=== PATIENT | female | born 1990 | race Two or more races ===

== ENCOUNTER 2020-06-12 18:17 | Emergency (ER) | payer OTHER, SELFPAY ==
[2020-06-12 19:29] VITALS: BMI 27.4
[2020-06-12 20:00] VITALS: BP 139/78; PULSE 86; RESP 18; TEMP 36.8; O2SAT 97
--- NOTE | 2020-06-12 20:53 | ED.HEATRA ---
HPI - Head Injury General Chief complaint: Headache <Grace Parham NP - Last Filed: 06/13/20 00:33> Stated complaint: head inj 2 weeks ago at work <HENRY Galan Last Filed: 06/13/20 00:33> Time Seen by Provider: 06/12/20 20:35 <Grace Parham NP - Last Filed: 06/13/20 00:33> Source: patient <Grace Parham NP - Last Filed: 06/13/20 00:33> Mode of arrival: ambulatory <HENRY Galan Last Filed: 06/13/20 00:33> Limitations: no limitations <HENRY Galan Last Filed: 06/13/20 00:33> History of Present Illness HPI Narrative: 30-year-old female previously healthy here with complaints of headache with photophobia and nausea. Patient tells me 2 weeks ago while working a box fell and hit her in the head. She has had symptoms since then. There was no loss of consciousness. She denies neck pain, vomiting, dizziness, photophobia. No previous history of concussions. Taking Tylenol home with continued symptoms. Has not been seen for this. <Grace Parham NP - Last Filed: 06/13/20 00:33> MD Complaint: head injury and head pain <HENRY Galan Last Filed: 06/13/20 00:33> Onset (ago): week(s) <HENRY Galan Last Filed: 06/13/20 00:33> Mechanism of Injury: work related injury <HENRY Galan Last Filed: 06/13/20 00:33> Place: work <HENRY Galan Last Filed: 06/13/20 00:33> Loss of Consciousness: no <HENRY Galan Last Filed: 06/13/20 00:33> Location of injury: temporal <HENRY Galan Last Filed: 06/13/20 00:33> Severity: mild <HENRY Galan Last Filed: 06/13/20 00:33> Quality: dull <Grace Parham NP - Last Filed: 06/13/20 00:33> Radiation: none <Grace Parham NP - Last Filed: 06/13/20 00:33> Other Injuries: none <Grace Parham NP - Last Filed: 06/13/20 00:33> Associated symptoms: nausea <Grace Parham NP - Last Filed: 06/13/20 00:33> Related Data Allergies/Adverse reactions: Allergies Allergy/AdvReac Type Severity Reaction Status Date / Time No Known Allergies Allergy Verified 06/12/20 20:52 <Grace Parham NP - Last Filed: 06/13/20 00:33> Review of Systems Review of Systems: Yes all other systems are reviewed and are negative <HENRY Galan Last Filed: 06/13/20 00:33> Constitutional: Constitutional: Reports no additional constitutional complaints, Denies body ache(s), Denies chills, Denies fever(s), Reports headache(s) and Denies weakness <Grace Parham NP - Last Filed: 06/13/20 00:33> Eyes: Eyes: Reports no additional eye complaints, Denies change in vision and Reports photophobia <Grace Parham NP - Last Filed: 06/13/20 00:33> ENT: Reports system reviewed and no additional complaints, except as documented, Denies dizziness, Reports headache(s), Denies nasal congestion, Denies nasal discharge and Denies neck pain <Grace Parham NP - Last Filed: 06/13/20 00:33> Cardiovascular: Cardiovascular: Reports no additional cardiovascular complaints, Denies chest pain, Denies leg edema and Denies dyspnea <Grace Parham NP - Last Filed: 06/13/20 00:33> Respiratory: Respiratory: Reports no additional respiratory complaints, Denies cough and Denies dyspnea <Grace Parham NP - Last Filed: 06/13/20 00:33> Gastrointestinal: Gastrointestinal: Reports no additional gastrointestinal complaints, Denies abdominal pain, Denies diarrhea, Reports nausea and Denies vomiting <Grace Parham NP - Last Filed: 06/13/20 00:33> Genitourinary: Genitourinary: Reports no additional female genitourinary complaints and Denies urinary incontinence <Grace Parham NP - Last Filed: 06/13/20 00:33> Musculoskeletal: Musculoskeletal: Reports no additional musculoskeletal complaints, Denies back pain, Denies arthralgias, Denies joint swelling, Denies neck pain, Denies numbness and Denies tingling <Grace Parham NP - Last Filed: 06/13/20 00:33> Integumentary/Breasts: Skin/Breast: Reports system reviewed and no additional complaints, except as docu and Denies rash <Grace Parham NP - Last Filed: 06/13/20 00:33> Neurologic: Reports system reviewed and no additional complaints, except as documented, Denies Abnormal speech present, Denies dizziness, Reports headache(s), Denies numbness, Denies tingling and Denies weakness <Grace Parham NP - Last Filed: 06/13/20 00:33> FOR[facility]LY [facility] Past Medical History Attestation statement: The following information was validated with the patient. <Grace Parham NP - Last Filed: 06/13/20 00:33> Source: old records reviewed and nursing notes reviewed <Grace Parham NP - Last Filed: 06/13/20 00:33> Medical History: Medical History No known health problems <Grace Parham NP - Last Filed: 06/13/20 00:33> Social History Social History: Social History Alcohol intake: never Smoked in Last 30 Days: No Use of substances other than those prescribed or required for medical reasons: No Advance Directives: No Advance Directives Information Provided: Yes <Grace Parham NP - Last Filed: 06/13/20 00:33> Physical Exam Vital Signs: Vital Signs: Last Vital Signs Temp 98.3 F 06/12/20 20:00 Pulse 86 06/12/20 20:00 Resp 18 06/12/20 20:00 BP 139/78 06/12/20 20:00 Pulse Ox 97 06/12/20 20:00 Body Mass Index 27.4 <Grace Parham NP - Last Filed: 06/13/20 00:33> Vital Signs: Last Vital Signs Temp 98.3 F 06/12/20 20:00 Pulse 86 06/12/20 20:00 Resp 18 06/12/20 20:00 BP 139/78 06/12/20 20:00 Pulse Ox 97 06/12/20 20:00 Body Mass Index 27.4 <Nayan Graham MD - Last Filed: 06/25/20 07:41> Const: General: cooperative, healthy appearing, comfortable and no acute distress <Grace Parham NP - Last Filed: 06/13/20 00:33> Orientation/consciousness: patient oriented x3 <Grace Parham NP - Last Filed: 06/13/20 00:33> Limitations: no limitations <Grace Parham NP - Last Filed: 06/13/20 00:33> HENMT: Head: Yes normal to inspection <Grace Parham NP - Last Filed: 06/13/20 00:33> Ears: hearing grossly normal bilaterally <Grace Parham NP - Last Filed: 06/13/20 00:33> General nose exam: Normal external nose present <Grace Parham NP - Last Filed: 06/13/20 00:33> Face and sinus: Yes normal facial exam <Grace Parham NP - Last Filed: 06/13/20 00:33> Mouth: Normal oral and palatal mucosa present <Grace Parham NP - Last Filed: 06/13/20 00:33> Throat: Yes posterior oropharynx normal <Grace Parham NP - Last Filed: 06/13/20 00:33> Eyes: General: appearance normal, both eyes and all related structures <Grace Parham NP - Last Filed: 06/13/20 00:33> Pupils: Equal, round and reactive pupils present <Grace Parham NP - Last Filed: 06/13/20 00:33> Direct Ophthalmoscopy: photophobia <Grace Parham NP - Last Filed: 06/13/20 00:33> Neck: Neck: Yes normal visual inspection <Grace Parham NP - Last Filed: 06/13/20 00:33> Chest: Chest palpation & inspection: normal inspection of the chest <Grace Parham NP - Last Filed: 06/13/20 00:33> Resp: Effort & Inspection: normal respiratory effort <Grace Parham NP - Last Filed: 06/13/20 00:33> Auscultation: clear to auscultation bilaterally <Grace Parham NP - Last Filed: 06/13/20 00:33> Cardio: Rate: regular rate <Grace Parham NP - Last Filed: 06/13/20 00:33> Rhythm: regular rhythm <Grace Parham NP - Last Filed: 06/13/20 00:33> Peripheral pulses: Peripheral pulses 2+ throughout <Grace Parham NP - Last Filed: 06/13/20 00:33> GI: Inspection: Yes normal to inspection <Grace Parham NP - Last Filed: 06/13/20 00:33> Palpation (GI): Soft to palpation and nontender <Grace Parham NP - Last Filed: 06/13/20 00:33> Auscultation: normal bowel sounds <Grace Parham NP - Last Filed: 06/13/20 00:33> Back/Spine/Pelvis: Thoracic/Lumbar Spine: thoracic and lumbar spine normal to inspection <Grace Parham NP - Last Filed: 06/13/20 00:33> Skin: General skin exam: no rashes or lesions noted <Grace Parham NP - Last Filed: 06/13/20 00:33> Neuro: General: patient oriented x3, no focal motor deficits and normal sensation to monofilament <Grace Parham NP - Last Filed: 06/13/20 00:33> Cranial nerves: Yes CN's II-XII intact bilaterally, Yes Equal, round and reactive pupils present, Yes Bilaterally intact EOM present, Yes Nystagmus not present, Yes Normal facial strength present and Yes Midline tongue present <Grace Parham NP - Last Filed: 06/13/20 00:33> Cognition (Neuro): normal cognition <Grace Parham NP - Last Filed: 06/13/20 00:33> Speech: No Abnormal speech present <Grace Parham NP - Last Filed: 06/13/20 00:33> Gait exam (Neuro): Normal gait present <Grace Parham NP - Last Filed: 06/13/20 00:33> Motor exam (neuro): 5/5 motor strength present throughout <Grace Parham NP - Last Filed: 06/13/20 00:33> Sensory Exam: Normal double simultaneous stimulation for sensation <Grace Parham NP - Last Filed: 06/13/20 00:33> Coordination: [id number] test normal, reuz-hk-[id number] test normal and tandem gait normal <Grace Parham NP - Last Filed: 06/13/20 00:33> Extrem: General: Yes normal to inspection <Grace Parham NP - Last Filed: 06/13/20 00:33> Course Course Course Narrative: 30-year-old female here with headache, nausea and photophobia status post head injury 2 weeks ago. Normal neurological exam. Will check urine , CT head. 2300-CT head negative. Patient is feeling improved after receiving IM Toradol. Likely post concussive. Reviewed worrisome signs and symptoms of when to return to the emergency department. Reviewed head injury care and follow-up with our connections was a work related injury. Comfortable with discharge home. <Grace Parham NP - Last Filed: 06/13/20 00:33> I have reviewed the chart <Nayan Graham MD - Last Filed: 06/25/20 07:41> MDM - Head Injury MDM Narrative Medical decision making narrative: Less likely SDH with negative CT and symptoms >2 weeks <Grace Parham NP - Last Filed: 06/13/20 00:33> Differential Diagnosis Differential diagnosis: Likely concussion without loss of consciousness, closed head injury and subdural hematoma <Grace Parham NP - Last Filed: 06/13/20 00:33> Medical Records Attestation: I reviewed the patient's medical records. <Grace Parham NP - Last Filed: 06/13/20 00:33> Lab Data Attestation: I reviewed the patient's lab results. <Grace Parham NP - Last Filed: 06/13/20 00:33> Labs: Lab Results 06/12/20 Range/Units 21:05 Urine Test NEGATIVE (NEGATIVE) <Grace Parham NP - Last Filed: 06/13/20 00:33> Lab Results 06/12/20 Range/Units 21:05 Urine Test NEGATIVE (NEGATIVE) <Nayan Graham MD - Last Filed: 06/25/20 07:41> Imaging Data CT scan - head: Attestation: I personally reviewed and interpreted this imaging study as follows: <Grace Parham NP - Last Filed: 06/13/20 00:33> Radiologist's impression: EXAMINATION: CT HEAD WITHOUT CONTRAST CLINICAL INFORMATION: Head injury. Pain. COMPARISON: None. TECHNIQUE: Contiguous axial imaging was performed from the skull base to vertex without intravenous contrast. This CT examination was performed using dose optimization techniques as appropriate, variously including the following: * Automated exposure control * Adjustment of mA and/or kV according to patient size (this includes techniques or standardized protocols for targeted exams where dose is matched to indication/reason for exam; i.e. extremities or head) Use of iterative reconstruction technique DLP: 674 mGy-cm. FINDINGS: There is no evidence of acute intracranial hemorrhage or territorial infarction. No abnormal mass effect or midline shift is seen. Turner to white matter differentiation is well preserved. No extra-axial fluid collections are identified. No hydrocephalus. No significant volume loss. There is no abnormal attenuation within the brain parenchyma. The osseous structures and soft tissues are normal. The mastoid air cells and visualized portions of the paranasal sinuses are well aerated. CT/CT head/brain wo con IMPRESSION: No acute intracranial pathology. <Grace Parham NP - Last Filed: 06/13/20 00:33> Discharge Plan Discharge Clinical Impression: Concussion without loss of consciousness <Grace Parham NP - Last Filed: 06/13/20 00:33> Patient Disposition: Home, Self-Care <Grace Parham NP - Last Filed: 06/13/20 00:33> Instructions: Concussion (ED) <Grace Parham NP - Last Filed: 06/13/20 00:33> Additional Instructions: As this was a work related injury should follow up with Work connection prior to clearance to return to work [phone] Limit screen time. Get plenty of rest <Grace Parham NP - Last Filed: 06/13/20 00:33> Referrals: Physician,None [Primary Care Provider] - 2 days <Grace Parham NP - Last Filed: 06/13/20 00:33> Stand Alone Forms: Work/School Release <Grace Parham NP - Last Filed: 06/13/20 00:33> Interventions: ED Discharge Assessment Last Done: 06/12/20 23:48 <Grace Parham NP - Last Filed: 06/13/20 00:33> Discharge Date/Time: 06/12/20 23:50 <Grace Parham NP - Last Filed: 06/13/20 00:33>
[2020-06-12 21:51] LABS: UPreg QC Valid YES; Urine Pregnancy NEGATIVE (NEGATIVE)
--- NOTE | 2020-06-12 21:52 | CT_ITS ---
EXAMINATION: CT HEAD WITHOUT CONTRAST CLINICAL INFORMATION: Head injury. Pain. COMPARISON: None. TECHNIQUE: Contiguous axial imaging was performed from the skull base to vertex without intravenous contrast. This CT examination was performed using dose optimization techniques as appropriate, variously including the following: * Automated exposure control * Adjustment of mA and/or kV according to patient size (this includes techniques or standardized protocols for targeted exams where dose is matched to indication/reason for exam; i.e. extremities or head) Use of iterative reconstruction technique DLP: 674 mGy-cm. FINDINGS: There is no evidence of acute intracranial hemorrhage or territorial infarction. No abnormal mass effect or midline shift is seen. Turner to white matter differentiation is well preserved. No extra-axial fluid collections are identified. No hydrocephalus. No significant volume loss. There is no abnormal attenuation within the brain parenchyma. The osseous structures and soft tissues are normal. The mastoid air cells and visualized portions of the paranasal sinuses are well aerated. CT/CT head/brain wo con IMPRESSION: No acute intracranial pathology.
[2020-06-12] MEDS: Ketorolac Tromethamine 60 MG/2 ML VIAL IM (23:17)
== END 2020-06-12 23:50 | disposition home or self-care (01) ==
PROVIDERS: Nurse Practitioner Family; Emergency Provider Emergency Medicine
DX: S06.0X0A Concussion without loss of consciousness, initial encounter (principal); G44.309 Post-traumatic headache, unspecified, not intractable; X58.XXXA Exposure to other specified factors, initial encounter; Y93.9 Activity, unspecified; Y92.9 Unspecified place or not applicable; Y99.0 Civilian activity done for income or pay
CPT/HCPCS: 70450; 81025; 96372; 99284; J1885

== ENCOUNTER 2021-04-15 12:44 | Emergency (ER) | payer OTHER, SELFPAY ==
[2021-04-15 12:55] VITALS: BP 120/80; PULSE 84; RESP 20; TEMP 36.6; O2SAT 99; BMI 28.3
[2021-04-15 13:10] LABS: MANUAL DIFF FLAG NO
[2021-04-15 13:12] LABS: Basophils Percent Auto 0.5 % (0-2); Eosinophils Absolute Auto 0.2 X10*3/uL (0.0-0.4); Hematocrit 41.1 % (37.0-47.0); Hemoglobin 13.4 g/dl (12.0-16.0); Imm Gran Abs Auto 0.03 X10*3/uL (0.00-0.03); Imm Gran Pct Auto 0.3 % (0.0-0.4); Lymphocytes Absolute Auto 1.8 X10*3/uL (1.2-4.9); Lymphocytes Percent Auto 20.9 % (20-40); Mean Corpuscular HGB Conc 32.6 g/dl (31.0-35.0); Mean Corpuscular Volume 82.7 fL (80.0-98.0); Mean Platelet Volume 9.9 fL (9.4-12.3); Monocytes Absolute Auto 0.6 X10*3/uL (0.1-1.2); Neutrophils Absolute Auto 6.1 x10*3/uL (2.0-8.3); Neutrophils Percent Auto 69.3 % (45-73); Platelet Count 231 X10*3/uL (160-400); Red Blood Count 4.97 X10*6/uL (4.20-5.50); White Blood Count 8.8 X10*3/uL (4.8-10.8)
--- NOTE | 2021-04-15 13:27 | ED_ITS ---
HPI - Abdominal Pain General Chief Complaint: Abdominal Pain Stated Complaint: low abd pain - Time Seen by Provider: 04/15/21 13:24 Source: patient Mode of arrival: ambulatory Limitations: no limitations History of Present Illness HPI narrative: patient is unknown amount of time, LMP was November but p atient is not regular, patient went to [facility] on Tuesday told her she was , she had an ultrasound which showed IUP.. Still having pain, does not have OB at this time, no bleeding. MD elicited complaint: abdominal pain Onset (ago): week(s) Pain Consistency: intermittent Location: pelvis Associated symptoms: nausea Related Data Allergies Allergy/AdvReac Type Severity Reaction Status Date / Time No Known Allergies Allergy Verified 06/12/20 20:52 Review of Systems Denies Sensory deficit (Neuro) Physical Exam Vital Signs: Vital Signs: Last Vital Signs Temp 98 F 04/15/21 12:55 Pulse 84 04/15/21 12:55 Resp 20 04/15/21 12:55 BP 120/80 04/15/21 12:55 Pulse Ox 99 04/15/21 12:55 Body Mass Index 28.3 Const: General: healthy appearing Nutritional Appearance: average body habitus Orientation/consciousness: oriented to person and patient oriented x3 Limitations: no limitations HENMT: Head: Yes normal to inspection Ears: external ears normal General nose exam: Normal external nose present Mouth: Normal oral and palatal mucosa present and oropharynx normal Throat: Yes posterior oropharynx normal Eyes: General: appearance normal, both eyes and all related structures Neck: Other: supple Neck: Yes normal visual inspection Chest: Chest palpation & inspection: normal inspection of the chest Resp: Auscultation: clear to auscultation bilaterally Cardio: Jugular venous distension: no JVD Rate: regular rate Rhythm: regular rhythm Heart sounds: S1 normal heart sound present and S2 normal heart sound present GI: Inspection: Yes normal to inspection Palpation (GI): Soft to palpation, nontender and No hepatosplenomegaly present Auscultation: normal bowel sounds : General: Yes no CVA tenderness Back/Spine/Pelvis: Back: no CVA tenderness Skin: General skin exam: no rashes or lesions noted Neuro: General: oriented to person and patient oriented x3 Cranial nerves: Yes CN's II-XII intact bilaterally Motor exam (neuro): 5/5 motor strength present throughout Sensory Exam: No Sensory deficit (Neuro) Extrem: General: Yes normal to inspection Psych: Appearance: grossly normal Course Reevaluation(s) Reevaluation #1: patient seen 2 days ago at [facility] and had normal UA and US. Blood and UA are negative will dc home Time: 14:22 MDM - Abdominal Pain Lab Data Result diagrams: 04/15/21 13:06 04/15/21 13:06 Labs: Lab Results 04/15/21 04/15/21 04/15/21 Range/Units 13:06 13:06 13:45 WBC 8.8 (4.8-10.8) X10*3/uL RBC 4.97 (4.20-5.50) X10*6/uL Hgb 13.4 (12.0-16.0) g/dl Hct 41.1 (37.0-47.0) % MCV 82.7 (80.0-98.0) fL MCH 27.0 (27.0-33.0) pg MCHC 32.6 (31.0-35.0) g/dl RDW 15.0 (11.0-16.0) % Plt Count 231 (160-400) X10*3/uL MPV 9.9 (9.4-12.3) fL Immature Gran % (Auto) 0.3 (0.0-0.4) % Neut % (Auto) 69.3 (45-73) % Lymph % (Auto) 20.9 (20-40) % [place] % (Auto) 7.0 (2-11) % Eos % (Auto) 2.0 (0-4) % Baso % (Auto) 0.5 (0-2) % Lymph # (Auto) 1.8 (1.2-4.9) X10*3/uL [place] # (Auto) 0.6 (0.1-1.2) X10*3/uL Eos # (Auto) 0.2 (0.0-0.4) X10*3/uL Baso # (Auto) 0.0 (0.0-0.2) X10*3/uL Abs Immat Gran (auto) 0.03 (0.00-0.03) X10*3/uL Absolute Neuts (auto) 6.1 (2.0-8.3) x10*3/uL Absolute Nucleated RBC 0.000 (0.0-0.012) X10*3/uL Nucleated RBC % (auto) 0.0 (0.0-0.2) /100WBC Sodium 138 (135-145) mmol/L Potassium 3.8 (3.3-5.1) mmol/L Chloride 106 (96-108) mmol/L Carbon Dioxide 25 (22-29) mmol/L Anion Gap 11 L (12-20) BUN 10 (9-16) mg/dL Creatinine 0.84 (0.5-1.4) mg/dL Estim Creat Clear Calc 101.4 Estimated GFR > 60 Random Glucose 114 (60-115) mg/dL Calcium 8.7 (8.4-10.2) mg/dL Total Bilirubin 0.2 (0.0-1.0) mg/dL AST 16 (5-31) U/L ALT 19 (0-31) U/L Alkaline Phosphatase 60 (39-117) U/L Total Protein 7.0 (6.5-8.0) g/dL Albumin 4.1 (3.5-5.0) g/dL Beta HCG, Quant 7736 mIU/mL Urine Color YELLOW Urine Appearance CLOUDY Urine pH 6.0 (5.0-8.0) Ur Specific [place] >= 1.030 H (1.005-1.025) Urine Protein TRACE (NEG-TRACE) MG/DL Urine Glucose (UA) NEG (NEG) MG/DL Urine Ketones NEG (NEG) MG/DL Urine Blood NEG (NEG) Urine Nitrite NEG (NEG) Ur Leukocyte Esterase 1+ H (NEG) Urine RBC 1-4 (0) /HPF Urine WBC 15-29 H (0-4) /HPF Ur Squamous Epith Cells 2+ /LPF Urine Bacteria 2+ /LPF Discharge Plan Discharge Clinical Impression: First trimester Patient Disposition: Home, Self-Care Instructions: First Trimester (ED) Referrals: Jasen Renteria MD [Physician] - 1 week [facility] Past Medical History Medical History No known health problems Social History Social History Alcohol intake: never Advance Directives: No Advance Directives Information Provided: No
[2021-04-15 13:33] LABS: Alanine Aminotransferase 19 U/L (0-31); Albumin Level 4.1 g/dL (3.5-5.0); Alkaline Phosphatase 60 U/L (39-117); Anion Gap 11 (12-20); Aspartate Amino Transferase 16 U/L (5-31); Bilirubin Total 0.2 mg/dL (0.0-1.0); Blood Urea Nitrogen 10 mg/dL (9-16); Calcium 8.7 mg/dL (8.4-10.2); Carbon Dioxide 25 mmol/L (22-29); Chloride 106 mmol/L (96-108); Creatinine Clr Calc Pharmacy 101.4; Estimated Glomerular Filt Rate > 60; Glucose Random 114 mg/dL (60-115); Potassium 3.8 mmol/L (3.3-5.1); Sodium 138 mmol/L (135-145)
[2021-04-15 13:39] LABS: HCG Quantitative 7736 mIU/mL
[2021-04-15 14:10] LABS: Appearance Urine CLOUDY; Color Urine YELLOW; Glucose Urine UA NEG (NEG); Leukocyte Esterase Urine 1+ (NEG); Nitrite Urine NEG (NEG); Specific Gravity - Urine >= 1.030 (1.005-1.025); UACC Culture Trigger YES; Urine Blood NEG (NEG); Urine Ketones NEG (NEG); Urine Protein TRACE MG/DL (NEG-TRACE)
[2021-04-15 14:18] LABS: UACC CULT YES
[2021-04-15 14:19] LABS: Bacteria Urine 2+ /LPF; Squamous Epithelial Cell Urine 2+ /LPF
[2021-04-15 14:31] VITALS: TEMP 37.2
== END 2021-04-15 14:46 | disposition home or self-care (01) ==
PROVIDERS: Emergency Provider Emergency Medicine
DX: O26.91 Pregnancy related conditions, unspecified, first trimester (principal); Z3A.00 Weeks of gestation of pregnancy not specified; Z79.899 Other long term (current) drug therapy
CPT/HCPCS: 36415; 80053; 81001; 84702; 85025; 87086; 87088; 87186; 99283

== ENCOUNTER 2021-04-24 13:18 | Emergency (ER) | payer OTHER, SELFPAY ==
--- NOTE | ~2021-04-24 | US_ITS ---
EXAMINATION: US ABDOMEN LIMITED CLINICAL INFORMATION: Right upper quadrant pain. COMPARISON: None TECHNIQUE: Real-time imaging of the right upper quadrant abdominal viscera. FINDINGS: PANCREAS: Normal. LIVER: Normal. The liver is normal in size. The liver contour is normal. Parenchymal echogenicity is normal. No focal hepatic lesion. There is no intrahepatic biliary duct dilatation seen. GALLBLADDER: The gallbladder is decompressed as the patient is in a nonfasting state. COMMON BILE DUCT: Normal in caliber measuring 0.2 cm in diameter. RIGHT KIDNEY: Normal. No hydronephrosis. No renal calculi or focal parenchymal lesions. The kidney measures 11.1 cm in maximum dimension. FREE FLUID: None. US/US abdomen limited IMPRESSION: The patient was nonfasting for the examination and therefore the gallbladder is decompressed and contracted, which limits assessment but is also indicative of a patent cystic duct. There are no detected sonographic abnormalities.
[2021-04-24 14:35] VITALS: BP 109/69; PULSE 80; RESP 18; TEMP 37.2; O2SAT 100; BMI 28.3
[2021-04-24 17:25] LABS: MANUAL DIFF FLAG NO
[2021-04-24 17:29] LABS: Basophils Percent Auto 0.2 % (0-2); Eosinophils Absolute Auto 0.1 X10*3/uL (0.0-0.4); Hematocrit 40.3 % (37.0-47.0); Hemoglobin 13.1 g/dl (12.0-16.0); Imm Gran Abs Auto 0.05 X10*3/uL (0.00-0.03); Imm Gran Pct Auto 0.4 % (0.0-0.4); Lymphocytes Absolute Auto 2.5 X10*3/uL (1.2-4.9); Lymphocytes Percent Auto 20.4 % (20-40); Mean Corpuscular HGB Conc 32.5 g/dl (31.0-35.0); Mean Corpuscular Hemoglobin 26.8 pg (27.0-33.0); Mean Corpuscular Volume 82.6 fL (80.0-98.0); Mean Platelet Volume 10.1 fL (9.4-12.3); Neutrophils Absolute Auto 8.6 x10*3/uL (2.0-8.3); Platelet Count 246 X10*3/uL (160-400); Red Blood Count 4.88 X10*6/uL (4.20-5.50); White Blood Count 12.3 X10*3/uL (4.8-10.8)
[2021-04-24 17:32] LABS: Appearance Urine CLEAR; Color Urine YELLOW; Glucose Urine UA NEG (NEG); Leukocyte Esterase Urine NEG (NEG); Nitrite Urine NEG (NEG); Specific Gravity - Urine 1.025 (1.005-1.025); Urine Blood NEG (NEG); Urine Ketones NEG (NEG); Urine Protein NEG (NEG-TRACE)
[2021-04-24 17:44] LABS: Alanine Aminotransferase 16 U/L (0-31); Albumin Level 4.2 g/dL (3.5-5.0); Alkaline Phosphatase 56 U/L (39-117); Anion Gap 16 (12-20); Aspartate Amino Transferase 17 U/L (5-31); Bilirubin Direct < 0.2 mg/dL (0.0-0.5); Bilirubin Total 0.3 mg/dL (0.0-1.0); Blood Urea Nitrogen 13 mg/dL (9-16); Calcium 9.5 mg/dL (8.4-10.2); Carbon Dioxide 20 mmol/L (22-29); Chloride 106 mmol/L (96-108); Creatinine Clr Calc Pharmacy 106.5; Estimated Glomerular Filt Rate > 60; Glucose Random 95 mg/dL (60-115); Lipase 21 U/L (8-78); Sodium 138 mmol/L (135-145); Total Protein 7.1 g/dL (6.5-8.0)
[2021-04-24 18:15] VITALS: BP 123/71; PULSE 82
--- NOTE | 2021-04-24 18:27 | ED.ABDPAIN ---
HPI - Abdominal Pain General Chief Complaint: Abdominal Pain Stated Complaint: severe abd pain Time Seen by Provider: 04/24/21 18:26 Source: patient Mode of arrival: ambulatory Limitations: no limitations History of Present Illness HPI narrative: Patient 7 weeks complaining of pain in the right upper quadrant for last 1 week for slight nausea no vomiting no urinary complaints no fever no chills patient never had similar in the past pain goes from right upper quadrant to right flank area no vaginal discharge or bleeding no lower abdominal pain Related Data Previous Rx's Medication Instructions Recorded cefuroxime axetil 250 mg tablet 250 mg PO BID 7 Days #14 tab 04/19/21 Allergies Allergy/AdvReac Type Severity Reaction Status Date / Time No Known Allergies Allergy Verified 06/12/20 20:52 Review of Systems Review of Systems Yes all other systems are reviewed and are negative Physical Exam Vital Signs: Vital Signs: Last Vital Signs Temp 98.9 F 04/24/21 14:35 Pulse 82 04/24/21 18:15 Resp 18 04/24/21 14:35 BP 123/71 04/24/21 18:15 Pulse Ox 100 04/24/21 14:35 BMI result Body Mass Index 28.3 Appearance: Alert. Oriented X3. No acute distress. Eyes: No pallor/ icterus ENT: Pharynx normal. Oral Mucosa moist Neck: Normal inspection. Neck supple. CVS: Normal heart rate and rhythm. Pulses normal. Respiratory: No respiratory distress. Equal air entry bilateral, no wheezing/rales/rhonchi Abdomen: Soft mild right upper quadrant tenderness no rebound tenderness or guarding Bowel sounds are present, no mass palpable, no CVA tenderness Skin: Skin warm and dry. Normal skin color. Normal skin turgor. Extremities: No lower extremity edema. No calf tenderness Neuro: Oriented X 3. MDM - Abdominal Pain MDM Narrative Medical decision making narrative: Patient upper quadrant pain etiology not clear ultrasound negative for gallstones or kidney stone lab workup is negative likely patient has GERD at this time patient does not want any medication for discharge home advised to take Tums or Maalox Lab Data Attestation: I reviewed the patient's lab results. Result diagrams: 04/24/21 17:06 04/24/21 17:06 Labs: Lab Results 04/24/21 04/24/21 04/24/21 Range/Units 17:06 17:06 17:06 WBC 12.3 H (4.8-10.8) X10*3/uL RBC 4.88 (4.20-5.50) X10*6/uL Hgb 13.1 (12.0-16.0) g/dl Hct 40.3 (37.0-47.0) % MCV 82.6 (80.0-98.0) fL MCH 26.8 L (27.0-33.0) pg MCHC 32.5 (31.0-35.0) g/dl RDW 15.0 (11.0-16.0) % Plt Count 246 (160-400) X10*3/uL MPV 10.1 (9.4-12.3) fL Immature Gran % (Auto) 0.4 (0.0-0.4) % Neut % (Auto) 70.0 (45-73) % Lymph % (Auto) 20.4 (20-40) % [place] % (Auto) 8.0 (2-11) % Eos % (Auto) 1.0 (0-4) % Baso % (Auto) 0.2 (0-2) % Lymph # (Auto) 2.5 (1.2-4.9) X10*3/uL [place] # (Auto) 1.0 (0.1-1.2) X10*3/uL Eos # (Auto) 0.1 (0.0-0.4) X10*3/uL Baso # (Auto) 0.0 (0.0-0.2) X10*3/uL Abs Immat Gran (auto) 0.05 H (0.00-0.03) X10*3/uL Absolute Neuts (auto) 8.6 H (2.0-8.3) x10*3/uL Absolute Nucleated RBC 0.000 (0.0-0.012) X10*3/uL Nucleated RBC % (auto) 0.0 (0.0-0.2) /100WBC Sodium 138 (135-145) mmol/L Potassium 4.0 (3.3-5.1) mmol/L Chloride 106 (96-108) mmol/L Carbon Dioxide 20 L (22-29) mmol/L Anion Gap 16 (12-20) BUN 13 (9-16) mg/dL Creatinine 0.80 (0.5-1.4) mg/dL Estim Creat Clear Calc 106.5 Estimated GFR > 60 Random Glucose 95 (60-115) mg/dL Calcium 9.5 D (8.4-10.2) mg/dL Total Bilirubin 0.3 (0.0-1.0) mg/dL Direct Bilirubin < 0.2 (0.0-0.5) mg/dL AST 17 (5-31) U/L ALT 16 (0-31) U/L Alkaline Phosphatase 56 (39-117) U/L Total Protein 7.1 (6.5-8.0) g/dL Albumin 4.2 (3.5-5.0) g/dL Lipase 21 (8-78) U/L Urine Color YELLOW Urine Appearance CLEAR Urine pH 6.0 (5.0-8.0) Ur Specific [place] 1.025 (1.005-1.025) Urine Protein NEG (NEG-TRACE) MG/DL Urine Glucose (UA) NEG (NEG) MG/DL Urine Ketones NEG (NEG) MG/DL Urine Blood NEG (NEG) Urine Nitrite NEG (NEG) Ur Leukocyte Esterase NEG (NEG) Discharge Plan Discharge Clinical Impression: Abdominal pain Patient Disposition: Home, Self-Care Instructions: Abdominal Pain in (ED) Additional Instructions: Etiology of pain is not very clear ultrasound is negative for gallstones or kidney stones ,l urine is negative Drink plenty of fluids , Tylenol for pain Report to ER/Pcp if pain continues or get worse Prescriptions: No Action cefuroxime axetil 250 mg tablet 250 mg PO BID 7 Days Qty: 14 RF: 0 Stand Alone Forms: Work/School Release Interventions: ED Discharge Assessment Last Done: 04/24/21 20:01 Discharge Date/Time: 04/24/21 20:15 [facility] Past Medical History Attestation statement: The following information was validated with the patient. Medical History No known health problems Social History Social History Alcohol intake: never Patient Tobacco Use Status: Former Tobacco user Use of substances other than those prescribed or required for medical reasons: No Advance Directives: No Advance Directives Information Provided: No Patient : Yes
== END 2021-04-24 20:15 | disposition home or self-care (01) ==
PROVIDERS: Emergency Provider Internal Medicine
DX: O26.891 Other specified pregnancy related conditions, first trimester (principal); R10.11 Right upper quadrant pain; Z3A.01 Less than 8 weeks gestation of pregnancy
CPT/HCPCS: 36415; 76705; 80048; 80076; 81003; 83690; 85025; 99284

== ENCOUNTER 2021-08-09 10:19 | Emergency (ER) | payer OTHER, SELFPAY ==
--- NOTE | ~2021-08-09 | US_ITS ---
EXAMINATION: US PELVIS TRANSVAGINAL CLINICAL INFORMATION: COMPARISON: None. TECHNIQUE: Transcutaneous and transvaginal pelvic ultrasound. Transvaginal scanning was performed after voiding to better evaluate the endometrium and adnexa. FINDINGS: The uterus measures 9.9 x 5.4 x 7.1 cm. The uterus is anteverted. No suspicious abnormalities region of the cervix. The uterine contour is smooth. The endometrium measures 0.5 cm. There is some fluid within the endometrial canal. No focal abnormalities within the myometrium. The right ovary measures approximately 3.6 x 3.0 x 2.5 cm. The calculated right ovarian volume is approximately 14.1 mL. Normal vasculature. No abnormal mass. The left ovary measures 3.2 x 2.1 x 2.6 cm. The calculated left ovarian volume is approximately 9.2 mL. There is normal vascular flow present. There is a 1.9 x 1.4 x 1.4 cm heterogeneous echotexture structure which is hyperechoic without internal vasculature and appears solid but with distal sound enhancement. No definite shadowing structure is seen. This could represent a dermoid tumor. No significant free pelvic fluid. US/US OB pelvic and transvaginal IMPRESSION: Small amount of fluid within endometrial canal which may represent residual blood. Left adnexal heterogeneous echotexture hyperechoic lesion measuring 1.9 cm in largest dimension and which may represent a dermoid tumor.
[2021-08-09 10:30] VITALS: BP 130/89; PULSE 97; RESP 18; TEMP 37.1; O2SAT 98; BMI 31.6
--- NOTE | 2021-08-09 10:33 | ED.FEMALEGU ---
HPI - Female Genitourinary General Chief complaint: Urogenital-Female Stated complaint: QUEST UTI OR KIDNEY STONE Time Seen by Provider: 08/09/21 10:33 Source: patient Mode of arrival: ambulatory Limitations: no limitations History of Present Illness HPI Narrative: Patient is a 31 year old female presenting to the emergency department today with pain with urination and right flank pain. Patient states that she had a miscarriage and associated D&C done 2 weeks ago. Patient states that she had the procedure done at a [facility] clinic and does not know the name of the doctor who did it. Patient denies any dizziness, lightheadedness, abdominal pain, nausea, vomiting, fever, chills, blurry vision, double vision, loss of vision, chest pain, difficulty breathing, shortness of breath, back pain, night sweats, increased urinary frequency, increased urinary urgency, blood in her urine or stool, vaginal bleeding, vaginal discharge, syncope or a near syncopal episode, recent trauma or falls, bowel incontinence, bladder incontinence, bowel retention, bladder retention, or any other complaints at this time. MD elicited complaint: dysuria Onset (ago): day(s) Severity: mild Female Urogenital Radiation: Non-Radiating Severity scale (1-10): 3 Quality of pain: dull Consistency: constant Vaginal discharge: none Vaginal bleeding: none Urinary symptoms: Dysuria Exacerbating factors: none Relieving factors: none Associated symptoms: denies other symptoms Treatment prior to arrival: none Sexual activity: No Patient : No Related Data Previous Rx's Medication Instructions Recorded cefuroxime axetil 250 mg tablet 250 mg PO BID 7 Days #14 tab 04/19/21 cephalexin 500 mg capsule 500 mg PO Q6H 7 Days #28 cap 08/09/21 Allergies Allergy/AdvReac Type Severity Reaction Status Date / Time No Known Allergies Allergy Verified 08/09/21 10:30 Review of Systems Constitutional: Constitutional: Reports no additional constitutional complaints, Denies chills, Denies fever(s) and Denies night sweats Eyes: Eyes: Reports no additional eye complaints, Denies blurry vision, Denies change in vision, Denies diplopia, Denies eye discharge, Denies loss of vision and Denies eye pain ENT: Denies dizziness Cardiovascular: Cardiovascular: Reports no additional cardiovascular complaints, Denies chest pain, Denies lightheadedness, Denies Loss of Consciousness and Denies dyspnea Respiratory: Respiratory: Reports no additional respiratory complaints and Denies dyspnea Gastrointestinal: Gastrointestinal: Reports no additional gastrointestinal complaints, Denies abdominal pain, Denies melena, Denies hematochezia, Denies change in bowel habits and Denies change in stool character Genitourinary: Genitourinary: Denies hematuria, Denies urinary frequency, Reports dysuria, Denies urinary incontinence, Denies urinary hesitancy and Denies urinary urgency Musculoskeletal: Musculoskeletal: Reports no additional musculoskeletal complaints, Denies numbness and Denies tingling Neurologic: Denies dizziness, Denies loss of vision, Denies numbness and Denies tingling Psychiatric: Psychiatric: Reports no additional psychiatric complaints Endocrine: Endocrine: Reports no additional endocrine complaints Hematologic/Lymphatic: Hematologic/Lymphatic: Reports no additional hematologic/lymphatic complaints Allergic/Immunologic: Allergic/Immunologic: Reports no additional allergic/immunologic complaints PMFSH Past Medical History Attestation statement: The following information was validated with the patient. Source: old records reviewed Medical History No known health problems Social History Social History Alcohol intake: never Patient Tobacco Use Status: Former Tobacco user Advance Directives: No Advance Directives Information Provided: Yes Patient : No Physical Exam Vital Signs: Vital Signs: Last Vital Signs Temp 98.7 F 08/09/21 10:30 Pulse 97 08/09/21 10:30 Resp 18 08/09/21 10:30 BP 130/89 08/09/21 10:30 Pulse Ox 98 08/09/21 10:30 BMI result Body Mass Index 31.6 Const: General: cooperative, no acute distress, alert and awake Nutritional Appearance: well nourished Orientation/consciousness: patient oriented x3 Limitations: no limitations HENMT: Head: Yes normal to inspection and Yes atraumatic Ears: hearing grossly normal bilaterally and external ears normal General nose exam: Normal external nose present, no nasal discharge noted and no epistaxis Face and sinus: Yes normal facial exam, No abrasion and No laceration Mouth: Normal oral and palatal mucosa present, no drooling and no muffled voice Eyes: General: appearance normal, both eyes and all related structures Periorbital: periorbital findings normal Eyelids: Yes eyelids normal Conjunctivae: conjunctivae normal Pupils: Equal, round and reactive pupils present EOM: EOMs intact bilaterally Neck: Neck: Yes normal visual inspection, Yes full ROM and Yes no lymphadenopathy Chest: Chest palpation & inspection: normal inspection of the chest Resp: Effort & Inspection: normal respiratory effort and able to speak in complete sentences Auscultation: clear to auscultation bilaterally Cardio: Rate: regular rate Rhythm: regular rhythm GI: Inspection: Yes normal to inspection Palpation (GI): Soft to palpation, not firm, nontender, no guarding and not rigid Neuro: General: patient oriented x3 and moves all extremities Cranial nerves: Yes Equal, round and reactive pupils present Cognition (Neuro): normal cognition Motor exam (neuro): 5/5 motor strength present throughout Sensory Exam: Normal double simultaneous stimulation for sensation Coordination: [id number] test normal Extrem: General: Yes normal to inspection, Yes full ROM and Yes capillary refill normal Psych: Appearance: grossly normal Mental Status: mental status grossly normal Affect: normal affect Attitude: cooperative Thought process: Normal thought process present Thought content: Normal thought content present Insight: Good insight present (Psych) MDM - Female Genitourinary MDM Narrative Medical decision making narrative: Patient is a 31 year old female presenting to the emergency department today with painful urination and right sided flank pain. Patient's physical exam was unremarkable including a normal abdominal examination. Patient's blood work was unremarkable. Patient's urine showed an acute urinary tract infection and was positive for however, the patient's beta HCG was less than 2. Patient's transvaginal US showed a possible dermoid tumor to the left ovary and some residual blood likely secondary to the previous procedure. I spoke to Dr. Renteria, the OBGYN renewable energy division manager, who stated the patient should follow up with their OB outpatient for serial HCGs. I explained my physical exam findings as well as all test results to the patient. I answered all questions asked by the patient. I stressed the importance of the patient taking her medication as prescribed. I stressed the importance of the patient following up with her primary care provider and her OBGYN. I stressed the importance of the patient returning to the emergency department immediately if her symptoms were to worsen or if she were to develop any dizziness, shortness of breath, difficulty breathing, chest pain, blurry vision, loss of vision, nausea, vomiting, abdominal pain, fever, chills, back pain, or any other complaints. Patient verbalized agreement and understanding with this treatment plan and discharge. Differential Diagnosis Differential diagnosis: Likely urinary tract infection and ovarian cyst Medical Records Attestation: I reviewed the patient's medical records. Lab Data Attestation: I reviewed the patient's lab results. Result diagrams: 08/09/21 11:17 08/09/21 11:17 Labs: Lab Results 08/09/21 08/09/21 08/09/21 Range/Units 10:43 10:43 11:17 WBC (4.8-10.8) X10*3/uL RBC (4.20-5.50) X10*6/uL Hgb (12.0-16.0) g/dl Hct (37.0-47.0) % MCV (80.0-98.0) fL MCH (27.0-33.0) pg MCHC (31.0-35.0) g/dl RDW (11.0-16.0) % Plt Count (160-400) X10*3/uL MPV (9.4-12.3) fL Immature Gran % (Auto) (0.0-0.4) % Neut % (Auto) (45-73) % Lymph % (Auto) (20-40) % [place] % (Auto) (2-11) % Eos % (Auto) (0-4) % Baso % (Auto) (0-2) % Lymph # (Auto) (1.2-4.9) X10*3/uL [place] # (Auto) (0.1-1.2) X10*3/uL Eos # (Auto) (0.0-0.4) X10*3/uL Baso # (Auto) (0.0-0.2) X10*3/uL Abs Immat Gran (auto) (0.00-0.03) X10*3/uL Absolute Neuts (auto) (2.0-8.3) x10*3/uL Absolute Nucleated RBC (0.0-0.012) X10*3/uL Nucleated RBC % (auto) (0.0-0.2) /100WBC Sodium 139 (135-145) mmol/L Potassium 4.2 (3.3-5.1) mmol/L Chloride 106 (96-108) mmol/L Carbon Dioxide 22 (22-29) mmol/L Anion Gap 15 (12-20) BUN 15 (9-16) mg/dL Creatinine 0.89 (0.5-1.4) mg/dL Estim Creat Clear Calc 100.1 Estimated GFR > 60 Random Glucose 99 (60-115) mg/dL Calcium 9.6 (8.4-10.2) mg/dL Magnesium 2.1 (1.6-2.6) mg/dL Total Bilirubin 0.4 (0.0-1.0) mg/dL AST 14 (5-31) U/L ALT 17 (0-31) U/L Alkaline Phosphatase 62 (39-117) U/L Total Protein 7.4 (6.5-8.0) g/dL Albumin 4.3 (3.5-5.0) g/dL Beta HCG, Quant < 2 mIU/mL Urine Color YELLOW Urine Appearance CLEAR Urine pH 6.0 (5.0-8.0) Ur Specific [place] 1.020 (1.005-1.025) Urine Protein NEG (NEG-TRACE) MG/DL Urine Glucose (UA) NEG (NEG) MG/DL Urine Ketones NEG (NEG) MG/DL Urine Blood 3+ H (NEG) Urine Nitrite NEG (NEG) Ur Leukocyte Esterase TRACE H (NEG) Urine RBC 1-4 (0) /HPF Urine WBC 1-4 (0-4) /HPF Ur Squamous Epith Cells 1+ /LPF Urine Bacteria TRACE /LPF Urine Mucus TRACE /LPF Urine Test POSITIVE H (NEGATIVE) 08/09/21 Range/Units 11:17 WBC 8.8 (4.8-10.8) X10*3/uL RBC 4.87 (4.20-5.50) X10*6/uL Hgb 12.8 (12.0-16.0) g/dl Hct 39.8 (37.0-47.0) % MCV 81.7 (80.0-98.0) fL MCH 26.3 L (27.0-33.0) pg MCHC 32.2 (31.0-35.0) g/dl RDW 14.1 (11.0-16.0) % Plt Count 289 (160-400) X10*3/uL MPV 10.0 (9.4-12.3) fL Immature Gran % (Auto) 0.3 (0.0-0.4) % Neut % (Auto) 73.6 H (45-73) % Lymph % (Auto) 18.0 L (20-40) % [place] % (Auto) 5.7 (2-11) % Eos % (Auto) 1.8 (0-4) % Baso % (Auto) 0.6 (0-2) % Lymph # (Auto) 1.6 (1.2-4.9) X10*3/uL [place] # (Auto) 0.5 (0.1-1.2) X10*3/uL Eos # (Auto) 0.2 (0.0-0.4) X10*3/uL Baso # (Auto) 0.1 (0.0-0.2) X10*3/uL Abs Immat Gran (auto) 0.03 (0.00-0.03) X10*3/uL Absolute Neuts (auto) 6.5 (2.0-8.3) x10*3/uL Absolute Nucleated RBC 0.000 (0.0-0.012) X10*3/uL Nucleated RBC % (auto) 0.0 (0.0-0.2) /100WBC Sodium (135-145) mmol/L Potassium (3.3-5.1) mmol/L Chloride (96-108) mmol/L Carbon Dioxide (22-29) mmol/L Anion Gap (12-20) BUN (9-16) mg/dL Creatinine (0.5-1.4) mg/dL Estim Creat Clear Calc Estimated GFR Random Glucose (60-115) mg/dL Calcium (8.4-10.2) mg/dL Magnesium (1.6-2.6) mg/dL Total Bilirubin (0.0-1.0) mg/dL AST (5-31) U/L ALT (0-31) U/L Alkaline Phosphatase (39-117) U/L Total Protein (6.5-8.0) g/dL Albumin (3.5-5.0) g/dL Beta HCG, Quant mIU/mL Urine Color Urine Appearance Urine pH (5.0-8.0) Ur Specific [place] (1.005-1.025) Urine Protein (NEG-TRACE) MG/DL Urine Glucose (UA) (NEG) MG/DL Urine Ketones (NEG) MG/DL Urine Blood (NEG) Urine Nitrite (NEG) Ur Leukocyte Esterase (NEG) Urine RBC (0) /HPF Urine WBC (0-4) /HPF Ur Squamous Epith Cells /LPF Urine Bacteria /LPF Urine Mucus /LPF Urine Test (NEGATIVE) Imaging Data Trasvaginal US: Attestation: I personally reviewed and interpreted this imaging study as follows: Radiologist's impression: EXAMINATION: US PELVIS TRANSVAGINAL CLINICAL INFORMATION: COMPARISON: None. TECHNIQUE: Transcutaneous and transvaginal pelvic ultrasound. Transvaginal scanning was performed after voiding to better evaluate the endometrium and adnexa. FINDINGS: The uterus measures 9.9 x 5.4 x 7.1 cm. The uterus is anteverted. No suspicious abnormalities region of the cervix. The uterine contour is smooth. The endometrium measures 0.5 cm. There is some fluid within the endometrial canal. No focal abnormalities within the myometrium. The right ovary measures approximately 3.6 x 3.0 x 2.5 cm. The calculated right ovarian volume is approximately 14.1 mL. Normal vasculature. No abnormal mass. The left ovary measures 3.2 x 2.1 x 2.6 cm. The calculated left ovarian volume is approximately 9.2 mL. There is normal vascular flow present. There is a 1.9 x 1.4 x 1.4 cm heterogeneous echotexture structure which is hyperechoic without internal vasculature and appears solid but with distal sound enhancement. No definite shadowing structure is seen. This could represent a dermoid tumor. No significant free pelvic fluid. US/US OB pelvic and transvaginal IMPRESSION: Small amount of fluid within endometrial canal which may represent residual blood. ? Left adnexal heterogeneous echotexture hyperechoic lesion measuring 1.9 cm in largest dimension and which may represent a dermoid tumor. Dictated By: Woody Terrazas MD Signed By: Electronically signed by Woody Terrazas MD 08/09/21 1250 Discharge Plan Discharge Clinical Impression: Urinary tract infection, Ovarian cyst Patient Disposition: Home, Self-Care Instructions: Ovarian Cyst (ED), Urinary Tract Infection in Women (DC) Additional Instructions: Follow up with your primary care provider and your OBGYN. Return to the emergency department immediately if your symptoms worsen or if you develop any dizziness, shortness of breath, difficulty breathing, chest pain, blurry vision, loss of vision, nausea, vomiting, abdominal pain, fever, chills, back pain, or any other complaints. Prescriptions: New cephalexin 500 mg capsule 500 mg PO Q6H 7 Days Qty: 28 0RF No Action cefuroxime axetil 250 mg tablet 250 mg PO BID 7 Days Qty: 14 0RF Referrals: Physician,Unknown J [Primary Care Provider] - 2 days (Follow up with your primary care provider and your OBGYN. ) Interventions: ED Discharge Assessment Last Done: 08/09/21 13:20 Discharge Date/Time: 08/09/21 13:21 Print Language: Turkmen
[2021-08-09 10:57] LABS: Appearance Urine CLEAR; Color Urine YELLOW; Glucose Urine UA NEG (NEG); Leukocyte Esterase Urine TRACE (NEG); Nitrite Urine NEG (NEG); UACC Culture Trigger YES; Urine Blood 3+ (NEG); Urine Ketones NEG (NEG); Urine Protein NEG (NEG-TRACE)
[2021-08-09 10:59] LABS: UPreg QC Valid YES; Urine Pregnancy POSITIVE (NEGATIVE)
[2021-08-09 11:05] LABS: Bacteria Urine TRACE /LPF; Squamous Epithelial Cell Urine 1+ /LPF
[2021-08-09 11:06] LABS: Mucus Urine TRACE /LPF
[2021-08-09 11:23] LABS: MANUAL DIFF FLAG NO
[2021-08-09 11:24] LABS: Basophils Absolute Auto 0.1 X10*3/uL (0.0-0.2); Basophils Percent Auto 0.6 % (0-2); Eosinophils Absolute Auto 0.2 X10*3/uL (0.0-0.4); Eosinophils Percent Auto 1.8 % (0-4); Hematocrit 39.8 % (37.0-47.0); Hemoglobin 12.8 g/dl (12.0-16.0); Imm Gran Abs Auto 0.03 X10*3/uL (0.00-0.03); Imm Gran Pct Auto 0.3 % (0.0-0.4); Lymphocytes Absolute Auto 1.6 X10*3/uL (1.2-4.9); Mean Corpuscular HGB Conc 32.2 g/dl (31.0-35.0); Mean Corpuscular Hemoglobin 26.3 pg (27.0-33.0); Mean Corpuscular Volume 81.7 fL (80.0-98.0); Monocytes Absolute Auto 0.5 X10*3/uL (0.1-1.2); Monocytes Percent Auto 5.7 % (2-11); Neutrophils Absolute Auto 6.5 x10*3/uL (2.0-8.3); Neutrophils Percent Auto 73.6 % (45-73); Platelet Count 289 X10*3/uL (160-400); Red Blood Count 4.87 X10*6/uL (4.20-5.50); Red Cell Distribution Width 14.1 % (11.0-16.0); White Blood Count 8.8 X10*3/uL (4.8-10.8)
[2021-08-09 11:41] LABS: Alanine Aminotransferase 17 U/L (0-31); Albumin Level 4.3 g/dL (3.5-5.0); Alkaline Phosphatase 62 U/L (39-117); Anion Gap 15 (12-20); Aspartate Amino Transferase 14 U/L (5-31); Bilirubin Total 0.4 mg/dL (0.0-1.0); Blood Urea Nitrogen 15 mg/dL (9-16); Calcium 9.6 mg/dL (8.4-10.2); Carbon Dioxide 22 mmol/L (22-29); Chloride 106 mmol/L (96-108); Creatinine Clr Calc Pharmacy 100.1; Estimated Glomerular Filt Rate > 60; Glucose Random 99 mg/dL (60-115); Magnesium 2.1 mg/dL (1.6-2.6); Potassium 4.2 mmol/L (3.3-5.1); Sodium 139 mmol/L (135-145); Total Protein 7.4 g/dL (6.5-8.0)
[2021-08-09 12:10] LABS: HCG Quantitative < 2 mIU/mL
--- NOTE | 2021-08-09 13:09 | PM.GYNCN ---
MEDICAL AFFAIRS MANAGER - CN: HPI Data of Consult Consult date: 08/09/21 Primary Care Provider: Unknown Physician Consult Narrative Narrative: I was consulted on Mayelin Garcia who is a 31 year old female who presented emergency room with dysuria and right flank pain. The patient had a suction D&C for a missed A/B 2 weeks ago. No vaginal bleeding or any other symptoms Workup done emergency room included the positive urine for UTI, HCG less than 2, pelvic ultrasound showed a small fluid in endometrial canal and left adnexal heterogenous echotexture hyperechoic lesion measuring 1.9 cm which may represent a dermoid cyst cc:: CC: EVENTS ASSOCIATE - Review of Systems Review of Systems ROS Unobtainable: All systems reviewed & are unremarkable except as noted in HPI and below Cardiovascular: Denies Palpatations, Loss of consciousness or Chest pain Respiratory: Denies Cough, Wheezing or Shortness of breath Musculoskeletal: Denies Low back pain Gastrointestinal: Denies Heartburn, Constipation, Diarrhea, Nausea or Vomiting Genitourinary: Denies Pain with urination, Burning with urination or Urinary frequency Neurological: Denies Migranes Psychological: Denies Depression OB PMFSH Past Medical History Medical History No known health problems Social History Social History Alcohol intake: never Patient Tobacco Use Status: Former Tobacco user Advance Directives: No Patient : No Meds Allergies Allergy/AdvReac Type Severity Reaction Status Date / Time No Known Allergies Allergy Verified 08/09/21 22:44 MEDICAL AFFAIRS MANAGER Physical Exam Vitals Vital signs: Temp Pulse Resp BP Pulse Ox 98.7 F 97 18 130/89 98 08/09/21 10:30 08/09/21 10:30 08/09/21 10:30 08/09/21 10:30 08/09/21 10:30 BMI result Body Mass Index 31.6 Constitutional General Appearance: Healthy appearing, Well-nourished and Well-developed Psychiatric Mood and Affect: active and alert, normal mood and normal affect Skin Appearance: No rashes and No lesions Lungs Respiratory Effort: No intercostal retractions Auscultation: Clear to auscultation Cardiovascular Auscultation: RRR Abdomen Auscultation/Inspection/Palpation: Normal bowel sounds, Soft, Non-distended and No tenderness Additional Comments: Exam reported by GIANCARLO Khan to be unremarkable MEDICAL AFFAIRS MANAGER - Results Labs CBC & Chem 7: 08/09/21 11:17 08/09/21 11:17 Labs: Short CBC 08/09/21 Range/Units 11:17 WBC 8.8 (4.8-10.8) X10*3/uL Hgb 12.8 (12.0-16.0) g/dl Hct 39.8 (37.0-47.0) % Plt Count 289 (160-400) X10*3/uL BMP 08/09/21 11:17 Sodium 139 Potassium 4.2 Chloride 106 Carbon Dioxide 22 BUN 15 Creatinine 0.89 Calcium 9.6 Liver Function 08/09/21 Range/Units 11:17 Total Bilirubin 0.4 (0.0-1.0) mg/dL AST 14 (5-31) U/L ALT 17 (0-31) U/L Alkaline Phosphatase 62 (39-117) U/L Albumin 4.3 (3.5-5.0) g/dL Urine 08/09/21 08/09/21 Range/Units 10:43 10:43 Urine Color YELLOW Urine Appearance CLEAR Urine pH 6.0 (5.0-8.0) Ur Specific [place] 1.020 (1.005-1.025) Urine Protein NEG (NEG-TRACE) MG/DL Urine Glucose (UA) NEG (NEG) MG/DL Urine Test POSITIVE H (NEGATIVE) Imaging US - abdomen: Radiologist's impression: ITS Impressions Pelvic/Transvag US 08/09/21 11:44 IMPRESSION: Small amount of fluid within endometrial canal which may represent residual blood. Left adnexal heterogeneous echotexture hyperechoic lesion measuring 1.9 cm in largest dimension and which may represent a dermoid tumor. Assessment and Plan (1) Ovarian cyst: Status: Acute Plan Recommended the following: HCG to be repeated in 48 hours, if hCG is increasing SAB versus ectopic to be ruled out and follow-up with outpatient ultrasound regarding the ovarian cyst possible dermoid
== END 2021-08-09 13:21 | disposition home or self-care (01) ==
PROVIDERS: Physician Assistant Medical; Emergency Provider Emergency Medicine Emergency Medical Services
DX: N83.209 Unspecified ovarian cyst, unspecified side (principal); N39.0 Urinary tract infection, site not specified; R30.0 Dysuria; Z87.891 Personal history of nicotine dependence; Z79.899 Other long term (current) drug therapy
CPT/HCPCS: 36415; 76801; 76817; 80053; 81001; 81025; 83735; 84702; 85025; 87086; 87147; 99282; 99283

== ENCOUNTER 2021-08-09 22:30 | Emergency (ER) | payer OTHER, SELFPAY ==
[2021-08-09 22:40] VITALS: BP 135/89; PULSE 80; RESP 20; TEMP 36.7; O2SAT 96; BMI 31.6
== END 2021-08-10 03:32 | disposition left against medical advice (07) ==
LOC: HO.ED 08-10 03:31
PROVIDERS: Emergency Provider Emergency Medicine
DX: R10.9 Unspecified abdominal pain (principal); Z87.440 Personal history of urinary (tract) infections
CPT/HCPCS: 99281; 99282

== ENCOUNTER 2021-12-14 13:57 | Emergency (ER) | payer OTHER, SELFPAY ==
[2021-12-14 14:11] VITALS: BP 130/97; PULSE 110; RESP 18; TEMP 36.1; O2SAT 99; BMI 31.6
--- NOTE | 2021-12-14 14:14 | ECG_ITS ---
Test Reason : hbp Blood Pressure : / mmHG Vent. Rate : 107 BPM Atrial Rate : 107 BPM P-R Int : 134 ms QRS Dur : 072 ms QT Int : 344 ms P-R-T Axes : 051 060 019 degrees QTc Int : 459 ms Sinus tachycardia Possible Left atrial enlargement Cannot rule out Anterior infarct , age undetermined - could be related to lead placement and body habitus Abnormal ECG No previous ECGs available Referred By: Generic ED Physician Electronically Signed By:OSMIN LEWIS
[2021-12-14 14:59] LABS: MANUAL DIFF FLAG NO
[2021-12-14 15:02] LABS: Basophils Percent Auto 0.3 % (0-2); Eosinophils Absolute Auto 0.1 X10*3/uL (0.0-0.4); Eosinophils Percent Auto 1.3 % (0-4); Hematocrit 40.9 % (37.0-47.0); Hemoglobin 13.3 g/dl (12.0-16.0); Imm Gran Abs Auto 0.02 X10*3/uL (0.00-0.03); Imm Gran Pct Auto 0.2 % (0.0-0.4); Lymphocytes Absolute Auto 2.2 X10*3/uL (1.2-4.9); Lymphocytes Percent Auto 24.4 % (20-40); Mean Corpuscular HGB Conc 32.5 g/dl (31.0-35.0); Monocytes Absolute Auto 0.5 X10*3/uL (0.1-1.2); Monocytes Percent Auto 5.4 % (2-11); Neutrophils Absolute Auto 6.2 x10*3/uL (2.0-8.3); Neutrophils Percent Auto 68.4 % (45-73); Platelet Count 272 X10*3/uL (160-400); Red Blood Count 5.11 X10*6/uL (4.20-5.50); Red Cell Distribution Width 15.3 % (11.0-16.0); White Blood Count 9.1 X10*3/uL (4.8-10.8)
[2021-12-14 15:19] LABS: Alanine Aminotransferase 14 U/L (0-31); Albumin Level 4.5 g/dL (3.5-5.0); Alkaline Phosphatase 59 U/L (39-117); Anion Gap 10 (12-20); Aspartate Amino Transferase 15 U/L (5-31); Bilirubin Total 0.3 mg/dL (0.0-1.0); Blood Urea Nitrogen 10 mg/dL (9-16); Carbon Dioxide 22 mmol/L (22-29); Chloride 108 mmol/L (96-108); Creatinine Clr Calc Pharmacy 108.7; Estimated Glomerular Filt Rate > 60; Glucose Random 129 mg/dL (60-115); Potassium 3.4 mmol/L (3.3-5.1); Sodium 137 mmol/L (135-145); Total Protein 7.4 g/dL (6.5-8.0)
[2021-12-14 15:21] LABS: Troponin-I High Sensitivity < 3.5 ng/L (<3.5-17.0)
== END 2021-12-14 19:53 | disposition left against medical advice (07) ==
PROVIDERS: Emergency Provider Emergency Medicine
DX: I10 Essential (primary) hypertension (principal); Z79.899 Other long term (current) drug therapy
CPT/HCPCS: 36415; 80053; 84484; 85025; 93005; 99283

== ENCOUNTER 2022-04-16 21:39 | Emergency (ER) | payer OTHER, SELFPAY ==
--- NOTE | ~2022-04-16 | XR_ITS ---
EXAMINATION: XR CHEST CLINICAL INFORMATION: Cough COMPARISON: None TECHNIQUE: 2 views of the chest were obtained. FINDINGS: No significant abnormality is noted involving the heart, lungs, mediastinum, bony thorax or soft tissues. XR/XR chest 2V IMPRESSION: Unremarkable examination.
[2022-04-16 21:51] VITALS: BP 137/96; PULSE 127; RESP 16; TEMP 37.2; O2SAT 99; BMI 31.6
[2022-04-16 22:27] LABS: COVID-19 Test Negative (Negative); IDNOW Serial# 55D5AD1C; IDNOW Serial# 9DB6401D; Influenza A Negative (Negative); Influenza B2 Negative (Negative)
--- OUTSIDE RECORDS SUMMARY | 2022-04-16 23:20 | XMS_ITS | Continuity of Care Document ---
:1990 Author Organization [facility] Address [address] [place] [address]- Care Team Providers Name Role Phone Not on Staff, PCP Primary Care Physician Unavailable Encounter [facility] Date(s): 12/14/21 - 01/13/22 [facility] [address] [place] [id number] Allergies, Adverse Reactions, Alerts No Known Medication Allergies Immunizations Given and Recorded Vaccine Date Status Refusal Reason Human Papillomavirus Vaccine 09/14/21 Given Medications aspirin 81 mg oral delayed release tablet 2 tablet = 162 mg, By Mouth, Daily, # 90 tablet, 0 Refills, Maintenance, 07/09/21 19:44:00 EST, CR Tablet, [id number], Partial fill upon patient request if the prescription is for a schedule IIopioid drug., 165.1, cm, 07/09/21 15:35:00 EST, H... Start Date: 07/09/21 Status: Orderedfluconazole 150 mg oral tablet 1 tablet = 150 mg, By Mouth, Once, Acute, # 1 tablet, 0 Refills, Soft Stop, 07/23/21 13:06:00 EST, [id number], Partial fill upon patient request if the prescription is for a schedule II opioid drug., 165, cm, 07/23/21 9:13:00 EST, Height, 89.5... Start Date: 07/23/21 Status: Orderedlabetalol 100 mg oral tablet 1 tablet = 100 mg, By Mouth, 2 times a day, # 180 tablet, 0 Refills, Maintenance, 07/09/21 19:44:00 EST, Tablet, [id number], Partial fill upon patient request if the prescription is for a schedule II opioid drug., 165.1, cm, 07/09/21 15:35:00... Start Date: 07/09/21 Status: OrderedMacrobid macrocrystals-monohydrate 100 mg oral capsule 1 capsule = 100 mg, By Mouth, 2 times a day, # 10 capsule, 0 Refills, Maintenance, 08/10/21 7:37:00 EDT, [id number], Partial fill upon patient request if the prescription is for a schedule II opioid drug., 165.1, cm, 08/05/21 10:49:00 EDT, Hei... Start Date: 08/10/21 Stop Date: 08/15/21 Status: OrderedPNV By Mouth, Daily, 0 Refills, Maintenance, 06/04/21 18:10:00 EST, Partial fill upon patient request ifthe prescription is for a schedule II opioid drug. Start Date: 06/04/21 Status: Ordered Problem List Condition Effective Dates Status Health Status Informant Abnormal MSAFP (maternal serum Active alpha-fetoprotein), elevated(Confirmed) Bleeding in early (Confirmed) Active Yeast infection(Confirmed) Active Obese class I(Confirmed) Active Oligohydramnios(Confirmed) Active Pre-op exam(Confirmed) Active Placental abruption(Confirmed) Active Chronic hypertension in Active (Confirmed) Social History Social History Type Response Smoking Status Former smoker, quit more jaelyn n 30 days ago entered on: 06/29/21 Sex
--- OUTSIDE RECORDS SUMMARY | 2022-04-16 23:20 | XMS_ITS | Continuity of Care Document ---
:1990 Author Organization [facility] Address [address] [place] [address]- Care Team Providers Name Role Phone Not on Staff, PCP Primary Care Physician Unavailable Encounter [facility] Date(s): 12/08/21 - 01/07/22 [facility] [address] [place] [id number] Allergies, Adverse Reactions, Alerts No [...] capsule, 0 Refills, Maintenance, 08/10/21 7:37:00 EDT, [id number], Partial fill upon patient request if [...]
--- OUTSIDE RECORDS SUMMARY | 2022-04-16 23:20 | XMS_ITS | Continuity of Care Document ---
:1991 Author Organization [facility] Address [address] [place] [address]- Care Team Providers Name Role Phone Not on Staff, PCP Primary Care Physician Unavailable Encounter [facility] Date(s): 08/05/21 - 09/04/[address] [address]- Attending Physician: Chanelle Woodruff Admitting Physician: AdmCahnelle villalpando Referring Physician: AdmtrChanelle Allergies, Adverse Reactions, Alerts No Known Medication Allergies Medications aspirin 81 mg oral delayed release [...] capsule, 0 Refills, Maintenance, 08/10/21 7:37:00 EDT, [facility]/pharmacy #[id number], Partial fill upon patient [...]
--- OUTSIDE RECORDS SUMMARY | 2022-04-16 23:20 | XMS_ITS | Continuity of Care Document ---
:1991 Author Organization [facility] Address [address] [place] [address]- Care Team Providers Name Role Phone Not on Staff, PCP Primary Care Physician Unavailable [place] [facility] [place](s[place] 07/10/21 - 09/10/[address] [address]- Attending Physician: Not on Staff, Attending MD Allergies, Adverse Reactions, Alerts No Known Medication [...] capsule, 0 Refills, Maintenance, 08/10/21 7:37:00 EDT, [facility]acy [facility][id number], Partial fill upon patient request [...]
--- OUTSIDE RECORDS SUMMARY | 2022-04-16 23:20 | XMS_ITS | Continuity of Care Document ---
:1991 Author Organization [facility] Address [address] [place] [address]- Care Team Providers Name Role Phone Not on Staff, PCP Primary Care Physician Unavailable Encounter [facility] [place] Date(s): 07/21/20 - 07/28/20 [facility] [address] [place] [id number] Attending Physician: Robby MCLEAN, Giorgi Red Referring Physician: Marcia Petty MD Allergies, Adverse Reactions, Alerts No Known Medication Allergies Medications Alesse oral tablet 1 tablet, By Mouth, Daily, # 28 tablet, 3 Refills, Maintenance, Tablet, 1 tablet By Mouth Daily Start Date: 01/18/13 Status: Orderedamitriptyline 10 mg oral tablet 10 mg, 1, tablet, By Mouth, Daily at bedtime, may increase to 2 tablets qhs after 1 week if needed.,# 30 tablet, Refills 2, Tot. Refills 2, Maintenance, 07/21/20 13:45:00 EST, Route to Pharmacy Electronically, [facility]/pharmacy #[id number], Partial fill upon pa... Start Date: 07/21/20 Status: OrderedBactrim DS 800 mg-160 mg oral tablet 1 tablet, By Mouth, 2 times a day, 0 Refills, Maintenance, 02/13/18 17:08:45 EDT, Tablet Start Date: 02/13/18 Stop Date: 02/16/18 Status: OrderedPercocet-10/325 1 tablet, By Mouth, Every 6 hours, 0 Refills, Maintenance Start Date: 01/18/13 Status: Ordered
--- OUTSIDE RECORDS SUMMARY | 2022-04-16 23:20 | XMS_ITS | Continuity of Care Document ---
:1991 Author Organization [facility] Address [address] [place] [address]- Care Team Providers Name Role Phone Not on Staff, PCP Primary Care Physician Unavailable Encounter [facility] [place] Date(s): 11/13/21 - 12/13/[address] [address] Attending Physician: Chanelle Woodruff Admitting Physician: Chanelle Woodruff Referring Physician: AdmtrChanelle Allergies, Adverse Reactions, Alerts [...]
--- OUTSIDE RECORDS SUMMARY | 2022-04-16 23:20 | XMS_ITS | Continuity of Care Document ---
:1991 Author Organization [facility] Address [address] [place] [address]- Care Team Providers Name Role Phone Not on Staff, PCP Primary Care Physician Unavailable Encounter [facility] [place] Date(s): 08/06/21 - 09/05/[address] [address]- Allergies, Adverse Reactions, Alerts No Known Medication [...] capsule, 0 Refills, Maintenance, 08/10/21 7:37:00 EDT, [facility]/pharmacy #1972, Partial fill upon patient request if the prescription is for a schedule II opioid drug., 165.1, cm, 08/05/21 10:49:00 EDT, Jono... Start Date: 08/10/21 Stop Date: 08/15/21 Status: [...]
--- OUTSIDE RECORDS SUMMARY | 2022-04-16 23:20 | XMS_ITS | Continuity of Care Document ---
:1991 Author Organization [facility] Address [address] [place] [address]- Care Team Providers Name Role Phone Not on Staff, PCP Primary Care Physician Unavailable Encounter [facility] [place] Date(s): 09/29/21 - 10/29/[address] [address]- Allergies, Adverse Reactions, Alerts No Known Medication [...] capsule, 0 Refills, Maintenance, 08/10/21 7:37:00 EDT, [facility]/pharmacy #[id number], Partial fill upon patient request [...]
--- OUTSIDE RECORDS SUMMARY | 2022-04-16 23:20 | XMS_ITS | Continuity of Care Document ---
:1991 Author Organization [facility] Address [address] [place] [address]- Care Team Providers Name Role Phone Not on Staff, PCP Primary Care Physician Unavailable Encounter [facility] [place] Date(s): 07/10/21 - 10/15/[address] [address]- Attending Physician: Not on Staff, Attending MD [...] capsule, 0 Refills, Maintenance, 08/10/21 7:37:00 EDT, [facility]/pharmacy #1972, Partial fill upon patient [...]
--- OUTSIDE RECORDS SUMMARY | 2022-04-16 23:20 | XMS_ITS | Continuity of Care Document ---
:1991 Author Organization [facility] Address [address] [place] [address]- Care Team Providers Name Role Phone Not on Staff, PCP Primary Care Physician Unavailable Encounter [facility] [place] Date(s): 09/05/20 - 10/15/[address] [address] Attending Physician: Keli Lewis Admitting Physician: Keli Lewis Allergies, Adverse Reactions, Alerts No Known Medication [...] tablet, Refills 2, Tot. Refills 2, Maintenance, 08/25/20 13:28:00 EDT, Route to Pharmacy Electronically, [facility]/pharmacy #[id number], Partial fill upon pa... Start Date: 08/25/20 Status: OrderedBactrim DS 800 mg-160 mg oral tablet 1 tablet, By Mouth, 2 times a day, 0 Refills, Maintenance, 02/13/18 17:08:45 EDT, Tablet Start Date: 02/13/18 Stop Date: 02/16/18 Status: OrderedPercocet-10/325 1 tablet, By Mouth, Every 6 hours, 0 Refills, Maintenance Start Date: 01/18/13 Status: Ordered
--- OUTSIDE RECORDS SUMMARY | 2022-04-16 23:20 | XMS_ITS | Continuity of Care Document ---
:1991 Author Organization [facility] Address [address] [place] [address]- Care Team Providers Name Role Phone Not on Staff, PCP Primary Care Physician Unavailable [place] [facility] [place] 07/10/21 - 09/10/[address] [address]- Attending Physician: Not on Staff, Attending MD [...]
--- OUTSIDE RECORDS SUMMARY | 2022-04-16 23:20 | XMS_ITS | Continuity of Care Document ---
:1991 Author Organization [facility] Address [address] [place] [address]- Care Team Providers Name Role Phone Not on Staff, PCP Primary Care Physician Unavailable [place] [facility] 07/10/21 - 10/01/[address] [address]- Attending Physician: Not on Staff, Attending MD [...] capsule, 0 Refills, Maintenance, 08/10/21 7:37:00 EDT, [facility]/pharmacy #[id number], Partial fill upon patient [...]
--- OUTSIDE RECORDS SUMMARY | 2022-04-16 23:20 | XMS_ITS | Continuity of Care Document ---
:1991 Author Organization [facility] Address [address] [place] [address]- Care Team Providers Name Role Phone Not on Staff, PCP Primary Care Physician Unavailable Encounter [facility] [place] Date(s): 07/07/21 - 08/06/21 [facility] [address] [place], [place] [address] Allergies, Adverse Reactions, Alerts No Known Medication [...] cm, 07/09/21 15:35:00... Start Date: 07/09/21 Status: OrderedPNV By Mouth, Daily, 0 Refills, [...]
--- OUTSIDE RECORDS SUMMARY | 2022-04-16 23:20 | XMS_ITS | Continuity of Care Document ---
:1991 Author Organization [facility] Address [address] [place] [address]- Care Team Providers Name Role Phone Not on Staff, PCP Primary Care Physician Unavailable Encounter [facility] Date(s): 09/02/19 - 09/02/[address] [address]- [facility] Encounter Diagnosis Suspected COVID-19 virus infection (Final) - 09/02/19 Discharge Disposition: A-D/C Home Attending Physician: Chito Rodriguez MD Admitting Physician: Chito Rodriguez MD Referring Physician: Not on Staff, Referring MD Allergies, Adverse Reactions, Alerts No Known Medication Allergies Medications Alesse oral tablet 1 tablet, By Mouth, Daily, # 28 tablet, 3 Refills, Maintenance, Tablet, 1 tablet By Mouth Daily Start Date: 01/18/13 Status: OrderedBactrim DS 800 mg-160 mg oral tablet 1 tablet, By Mouth, 2 times a day, 0 Refills, Maintenance, 02/13/18 17:08:45 EDT, Tablet Start Date: 02/13/18 Stop Date: 02/16/18 Status: OrderedPercocet-10/325 1 tablet, By Mouth, Every 6 hours, 0 Refills, Maintenance Start Date: 01/18/13 Status: Ordered Results Radiology Reports Exam Date Time Procedure Performing Provider Status 09/02/19 9:37 PM Chest Portable Kimo Lunsford (Verified) Notes:(Chest Portable) Reason For Exam: CoughRESULT: Chest Portable Chest Portable Reason: Cough; Clinical Question(s): Pneumonia; Hx of Present Illness: Lost of taste smell / Pneumonia COMPARISON: 02/09/2018 FINDINGS: LINES AND TUBES: None. LUNGS AND PLEURA: No pneumothorax. No pleural effusion. The lungs are clear. Pulmonary vascularity is normal. HEART, MEDIASTINUM AND ANIA: Heart is normal in size. Normal mediastinal silhouette. BONES AND SOFT TISSUES: No acute bony abnormalities. IMPRESSION: No acute abnormality. WSN: [id number] Ordering Physician: Joslyn Arellano Dictated By: Carl Duran MD Dictated Date/Time: 09/02/19 9:53 pm Reviewed By: Carl Duran MD Signed By: Carl Duran MD Signed Date/Time: 09/02/19 9:53 pm Transcribed By: JULIET Transcribed Date/Time: 09/02/19 9:52 pm Vital Signs Most recent to oldest [Reference Range]: 1 Oxygen Saturation [94-100 %] 100 % (09/02/19 9:25 PM) Pulse Rate [55-90 bpm] 87 bpm (09/02/19 9:25 PM) Blood Pressure [90-138/55-84 mm Hg] 165/107 mm Hg *H* (09/02/19 9:25 PM) Respiratory Rate [16-30 br/min] 16 br/min (09/02/19 9:25 PM) Temperature [96.8-100.4 DegF] 98.1 DegF (09/02/19 9:25 PM) Mode of Delivery (Oxygen) Room air (09/02/19 9:25 PM) Temperature Route Oral (09/02/19 9:25 PM)
--- OUTSIDE RECORDS SUMMARY | 2022-04-16 23:20 | XMS_ITS | Continuity of Care Document ---
:1991 Author Organization [facility] Address [address] [place] [address]- Care Team Providers Name Role Phone Not on Staff, PCP Primary Care Physician Unavailable Encounter [facility] [place] Date(s): 06/04/21 - 06/04/[address] [address]- Discharge Disposition: A-D/C Home Attending Physician: Adwoa العراقي MD Admitting Physician: Adwoa العراقي MD Referring Physician: Adwoa العراقي MD Allergies, Adverse Reactions, Alerts No Known [...] 08/25/20 13:28:00 EDT, Route to Pharmacy Electronically, [facility]/pharmacy #[id number], Partial fill upon pa... Start Date: 08/25/20 Status: OrderedBactrim DS 800 mg-160 mg oral tablet 1 tablet, By Mouth, 2 times a day, 0 Refills, Maintenance, 02/13/18 17:08:45 EDT, Tablet Start Date: 02/13/18 Stop Date: 02/16/18 Status: OrderedLabetalol See Instructions, 0 Refills, Maintenance, 06/04/21 18:11:00 EST, Partial fill upon patient request if the prescription is for a schedule II opioid drug. Start Date: 06/04/21 Status: OrderedmetroNIDAZOLE 500 mg oral tablet 1 tablet = 500 mg, By Mouth, Every 12 hours, for 7 days, # 14 tablet, 0 Refills, Acute 06/11/21 22:37:00 EST, 06/04/21 22:37:00 EST, Tablet, [facility]/pharmacy #1972, Partial fill upon patient request if theprescription is for a schedule II opioid drug., 8... Start Date: 06/04/21 Stop Date: 06/11/21 Status: OrderedPercocet-10/325 1 tablet, By Mouth, Every 6 hours, 0 Refills, Maintenance Start Date: 01/18/13 Status: OrderedPNV By Mouth, Daily, 0 Refills, Maintenance, 06/04/21 18:10:00 EST, Partial fill upon patient request ifthe prescription is for a schedule II opioid drug. Start Date: 06/04/21 Status: Ordered Vital Signs Most recent to oldest [Reference Range]: 1 Weight 87 kg (06/04/21 5:41 PM) Oxygen Saturation [94-100 %] 100 % (06/04/21 5:41 PM) Pulse Rate [55-90 bpm] 92 bpm *H* (06/04/21 5:41 PM) Blood Pressure [90-138/55-84 mm Hg] 131/73 mm Hg (06/04/21 5:41 PM) Respiratory Rate [16-30 br/min] 18 br/min (06/04/21 5:41 PM) Temperature [96.8-100.4 DegF] 98.4 DegF (06/04/21 5:41 PM) Mode of Delivery (Oxygen) Room air (06/04/21 5:41 PM) Blood pressure sites Arm, right 1 (06/04/21 5:41 PM) Temperature Route Oral (06/04/21 5:41 PM) Dry Weight 87 kg (06/04/21 5:41 PM) 1Result Comment: right upper arm measured 34cm
--- OUTSIDE RECORDS SUMMARY | 2022-04-16 23:20 | XMS_ITS | Continuity of Care Document ---
:1991 Author Organization [facility] Address [address] [place] [address]- Care Team Providers Name Role Phone Not on Staff, PCP Primary Care Physician Unavailable Encounter [facility] [place] Date(s): 09/09/19 - 09/09/[address] [address]- [facility] Encounter Diagnosis Headache (Final) - 09/09/19 Discharge Disposition: A-D/C Home Attending Physician: Asale Gutierrez MD Admitting Physician: Asael Gutierrez MD Referring Physician: Not on Staff, Referring [...] Refills, Maintenance Start Date: 01/18/13 Status: Ordered Vital Signs Most recent to oldest [Reference Range]: 1 2 Oxygen Saturation [94-100 %] 100 % 100 % (09/09/19 4:49 PM) (09/09/19 4:22 PM) Pulse Rate [55-90 bpm] 98 bpm 103 bpm *H* *H* (09/09/19 4:49 PM) (09/09/19 4:22 PM) Blood Pressure [90-138/55-84 mm Hg] 126/87 mm Hg (09/09/19 4:49 PM) Respiratory Rate [16-30 br/min] 16 br/min (09/09/19 4:49 PM) Temperature [96.8-100.4 DegF] 99.2 DegF (09/09/19 4:49 PM) Mode of Delivery (Oxygen) Room air Room air (09/09/19 4:49 PM) (09/09/19 4:22 PM) Blood pressure sites Arm, left (09/09/19 4:49 PM) Temperature Route Oral (09/09/19 4:49 PM)
--- OUTSIDE RECORDS SUMMARY | 2022-04-16 23:20 | XMS_ITS | Continuity of Care Document ---
:1991 Author Organization [facility] Address [address] [place] [address]- Care Team Providers Name Role Phone Not on Staff, PCP Primary Care Physician Unavailable Encounter [facility] [place] Date(s): 08/14/20 - 09/13/20 [facility] [address] [place] [id number] Allergies, Adverse Reactions, Alerts No Known Medication [...] 08/25/20 13:28:00 EDT, Route to Pharmacy Electronically, [facility]/pharmacy #1972, Partial fill upon pa... Start Date: 08/25/20 Status: OrderedBactrim DS 800 mg-160 mg oral tablet 1 tablet, By Mouth, 2 times a day, 0 Refills, Maintenance, 02/13/18 17:08:45 EDT, Tablet Start Date: 02/13/18 Stop Date: 02/16/18 Status: OrderedPercocet-10/325 1 tablet, By Mouth, Every 6 hours, 0 Refills, Maintenance Start Date: 01/18/13 Status: Ordered
--- OUTSIDE RECORDS SUMMARY | 2022-04-16 23:20 | XMS_ITS | Continuity of Care Document ---
:1991 Author Organization [facility] Address [address] [place] [address]- Care Team Providers Name Role Phone Not on Staff, PCP Primary Care Physician Unavailable [place] [facility] [place]/24/[place] - 07/24/[address] [address]- Discharge Disposition: A-D/C Home Attending Physician: Soo Dela Cruz MD Admitting Physician: Soo Dela Cruz MD Referring Physician: Soo Dela Cruz MD Allergies, Adverse Reactions, Alerts No Known Medication Allergies Medications aspirin 81 mg oral delayed release tablet 2 tablet = 162 mg, By Mouth, Daily, # 90 tablet, 0 Refills, Maintenance, 07/09/21 19:44:00 EST, CR Tablet, [id number], Partial fill upon patient request if the prescription is for a schedule IIopioid drug., 165.1, cm, 07/09/21 15:35:00 EST, H... Start Date: 07/09/21 Status: OrderedFENTanyl Inj 50 mcg, Injection, IV Push Slowly, Every 5 minutes for 4 doses/times, in PACU ONLY, Hold for: RR less than 8 or over-sedation, PRN for Pain , Severe, Repeat until Pain Score is less than or equal to 2,Routine, 07/24/21 10:21:00 EST, Stop date Limited... Start Date: 07/24/21 Stop Date: 07/24/21 Status: Discontinuedfluconazole 150 mg oral tablet 1 tablet = [...] abruption(Confirmed) Active Chronic hypertension in Active (Confirmed) Vital Signs Most recent to oldest 1 2 3 [Reference Range]: Height 165.1 cm (07/24/21 7:51 AM) Weight 86.4 kg (07/24/21 7:51 AM) Oxygen Saturation [94-100 %] 100 % 100 % 98 % (07/24/21 10:30 AM) (07/24/21 10:15 AM) (07/24/21 9:15 AM) Pulse Rate [55-90 bpm] 110 bpm *H* (07/24/21 7:51 AM) Body Mass Index [18.5-24.99] 31.7 *>HHI* (07/24/21 7:51 AM) Blood Pressure [90-138/55-84 mm 122/63 mm Hg 121/70 mm Hg 120/68 mm Hg Hg] (07/24/21 11:30 AM) (07/24/21 11:15 AM) (07/24/21 11:0 0 AM) Respiratory Rate [16-30 br/min] 14 br/min 20 br/min 22 br/min *L* (07/24/21 11:05 AM) (07/24/21 11:00 AM) (07/24/21 11:10 AM) Temperature [96.8-100.4 DegF] 98.4 DegF 98.2 DegF 99 .4 DegF (07/24/21 11:30 AM) (07/24/21 10:15 AM) (07/24/21 7:51 AM) Liters per Minute 6 L/min 6 L/min (07/24/21 10:30 AM) (07/24/21 10:15 AM) Mode of Delivery (Oxygen) Room air Room air Room a ir (07/24/21 11:30 AM) (07/24/21 11:15 AM) (07/24/21 11:0 0 AM) Blood pressure sites Arm, left (07/24/21 8:00 AM) Temperature Route Temporal Temporal Temporal (07/24/21 11:30 AM) (07/24/21 10:15 AM) (07/24/21 7:51 AM) Dry Weight 86.4 kg (07/24/21 7:51 AM) Weight Obtained Via Standing scale (07/24/21 7:51 AM) Social History Social History Type Response Smoking Status Former smoker, quit more jaelyn n 30 days ago entered on: 06/29/21 Sex
--- OUTSIDE RECORDS SUMMARY | 2022-04-16 23:20 | XMS_ITS | Continuity of Care Document ---
:1991 Author Organization [facility] Address [address] [place] [address]- Care Team Providers Name Role Phone Not on Staff, PCP Primary Care Physician Unavailable Encounter [facility] Date(s): 10/09/21 - 01/24/[address] [address]- Attending Physician: Not on Staff, Attending MD [...] capsule, 0 Refills, Maintenance, 08/10/21 7:37:00 EDT, [facility]/pharmacy #1972, Partial fill upon patient request [...] 30 days ago entered on: 06/29/21 Sex Care Team PersonnelName: Not on Staff, PCP
--- OUTSIDE RECORDS SUMMARY | 2022-04-16 23:20 | XMS_ITS | Continuity of Care Document ---
:1991 Author Organization [facility] Address [address] [place] [address]- Care Team Providers Name Role Phone Not on Staff, PCP Primary Care Physician Unavailable [place] [facility] [place]/05/20 - 10/05/[address] [address] Discharge Disposition: A-D/C Home Attending Physician: Not on Staff, Attending MD Admitting Physician: Not on Staff, Admitting MD Referring Physician: Keli Lewis Allergies, Adverse Reactions, Alerts [...] 08/25/20 13:28:00 EDT, Route to Pharmacy Electronically, [facility]/pharmacy #1972, Partial fill upon pa... Start Date: 08/25/20 Status: OrderedBactrim DS 800 mg-160 mg oral tablet 1 tablet, By Mouth, 2 times a day, 0 Refills, Maintenance, 02/13/18 17:08:45 EDT, Tablet Start Date: 02/13/18 Stop Date: 02/16/18 Status: OrderedPercocet-10/325 1 tablet, By Mouth, Every 6 hours, 0 Refills, Maintenance Start Date: 01/18/13 Status: Ordered
--- OUTSIDE RECORDS SUMMARY | 2022-04-16 23:20 | XMS_ITS | Continuity of Care Document ---
:1991 Author Organization [facility] Address [address] [place] [address]- Care Team Providers Name Role Phone Not on Staff, PCP Primary Care Physician Unavailable [place] [facility] [place] 09/24/20 [facility] [address] [place] [address]- Attending Physician: Chanelle Woodruff Admitting Physician: Chanelle [...] 08/25/20 13:28:00 EDT, Route to Pharmacy Electronically, [facility]/pharmacy #1972, Partial fill upon pa... Start Date: 08/25/20 Status: OrderedBactrim DS 800 mg-160 mg oral tablet 1 tablet, By Mouth, 2 times a day, 0 Refills, Maintenance, 02/13/18 17:08:45 EDT, Tablet Start Date: 02/13/18 Stop Date: 02/16/18 Status: OrderedPercocet-10/325 1 tablet, By Mouth, Every 6 hours, 0 Refills, Maintenance Start Date: 01/18/13 Status: Ordered
--- OUTSIDE RECORDS SUMMARY | 2022-04-16 23:20 | XMS_ITS | Continuity of Care Document ---
:1991 Author [facility] Address [address] [place] [address]- Care Team Providers Name Role Phone Not on Staff, PCP Primary Care Physician Unavailable En[facility] [place] Date[facility]s): 07/09/21 [facility] [address] [place] [address]- Allergies, Adverse Reactions, Alerts No Known Medication [...]
--- OUTSIDE RECORDS SUMMARY | 2022-04-16 23:20 | XMS_ITS | Continuity of Care Document ---
:1991 Author Organization [facility] Address [address] [place] [address]- Care Team Providers Name Role Phone Not on Staff, PCP Primary Care Physician Unavailable Encounter [facility] [place] Date(s): 07/05/21 - 07/05/21 [facility] [address] [place] [address]- Discharge Disposition: A-D/C Home Attending Physician: Lalita Cordova MD Admitting Physician: Lalita Cordova MD Referring Physician: Lalita Cordova MD Allergies, Adverse Reactions, Alerts No Known Medication Allergies Medications amitriptyline 10 mg oral tablet 10 mg, 1, tablet, By Mouth, Daily at bedtime, may increase to 2 tablets qhs after 1 week if needed.,# 30 tablet, Refills 2, Tot. Refills 2, Maintenance, 08/25/20 13:28:00 EDT, Route to Pharmacy Electronically, [facility]/pharmacy #1972, Partial fill upon pa... Start Date: 08/25/20 Status: OrderedLabetalol See Instructions, 0 Refills, Maintenance, 06/04/21 18:11:00 EST, Partial fill upon patient request if the prescription is for a schedule II opioid drug. Start Date: 06/04/21 Status: OrderedPNV By Mouth, Daily, 0 Refills, Maintenance, 06/04/21 18:10:00 EST, Partial fill upon patient request ifthe prescription is for a schedule II opioid drug. Start Date: 06/04/21 Status: Ordered Problem List Condition Effective Dates Status Health Status Informant Abnormal quad screen(Confirmed)1 06/25/21 Active Bleeding in early (Confirmed) Active Bacterial vaginosis in Active (Confirmed) Elevated BP without diagnosis of Active hypertension(Confirmed)2 1Positive for [id number] BP at NOB at current office 133/97, pt noted to be Rx labetalol 100mg, one tab BOD - no BP issuesnoted in transfer chart Vital Signs Most recent to oldest [Reference Range]: 1 Weight 90.0 kg (07/05/21 5:10 PM) Oxygen Saturation [94-100 %] 100 % (07/05/21 5:10 PM) Pulse Rate [55-90 bpm] 89 bpm (07/05/21 5:10 PM) Blood Pressure [90-138/55-84 mm Hg] 133/76 mm Hg (07/05/21 5:10 PM) Respiratory Rate [16-30 br/min] 18 br/min (07/05/21 5:10 PM) Temperature [96.8-100.4 DegF] 98.3 DegF (07/05/21 5:10 PM) Mode of Delivery (Oxygen) Room air (07/05/21 5:10 PM) Blood pressure sites Arm, left 1 (07/05/21 5:10 PM) Temperature Route Oral (07/05/21 5:10 PM) Dry Weight 90.0 kg (07/05/21 5:10 PM) Weight Obtained Via Standing scale (07/05/21 5:10 PM) Dry Weight Obtained Via Standing scale (07/05/21 5:10 PM) 1Result Comment: left arm measured at 35cm Social History Social History Type Response Smoking Status Former smoker, quit more jaelyn n 30 days ago entered on: 06/29/21 Sex
--- OUTSIDE RECORDS SUMMARY | 2022-04-16 23:21 | XMS_ITS | Continuity of Care Document ---
:1990 Author Organization [facility] Address [address] [place] [address]- Care Team Providers Name Role Phone Not on Staff, PCP Primary Care Physician Unavailable [place] [facility] [place]/[address] [address] Discharge Disposition: A-D/C Home Attending Physician: Adwoa [...] 15:35:00 EST, H... Start Date: 07/09/21 Status: Orderedclotrimazole 1% vaginal cream with applicator 1 application, Vaginally, Daily at bedtime, # 45 Gm, 0 Refills, Maintenance, 07/07/21 0:39:00 EST, Cream, [id number], Partial fill upon patient request if the prescription is for a schedule II opioid drug., 1 application Vaginally Daily at bed... Start Date: 07/07/21 Stop Date: 07/14/21 Status: Orderedlabetalol 100 mg oral tablet 1 [...] Active Obese class I(Confirmed) Active Oligohydramnios(Confirmed) Active Placental abruption(Confirmed) Active Chronic hypertension in Active (Confirmed) Vital Signs Most recent to oldest [Reference Range]: 1 Weight 87.5 kg (07/09/21 10:22 AM) Oxygen Saturation [94-100 %] 100 % (07/09/21 10:22 AM) Pulse Rate [55-90 bpm] 110 bpm *H* (07/09/21 10:22 AM) Blood Pressure [90-138/55-84 mm Hg] 124/79 mm Hg (07/09/21 10:22 AM) Respiratory Rate [16-30 br/min] 18 br/min (07/09/21 10:22 AM) Temperature [96.8-100.4 DegF] 98.7 DegF (07/09/21 10:22 AM) Mode of Delivery (Oxygen) Room air (07/09/21 10:22 AM) Blood pressure sites Arm, right 1 (07/09/21 10:22 AM) Temperature Route Oral (07/09/21 10:22 AM) Dry Weight 87.5 kg (07/09/21 10:22 AM) 1Result Comment: right upper arm measured 34.5cm Social History Social History Type Response Smoking Status Former smoker, quit more jaelyn n 30 days ago entered on: 06/29/21 Sex
--- OUTSIDE RECORDS SUMMARY | 2022-04-16 23:21 | XMS_ITS | Continuity of Care Document ---
:1990 Author Organization [facility] Address [address] [place] [address]- Care Team Providers Name Role Phone Not on Staff, PCP Primary Care Physician Unavailable [place] [facility] [place]15[place] - 08/27/[address] [address]- Attending Physician: Not on Staff, Attending MD [...] capsule, 0 Refills, Maintenance, 08/10/21 7:37:00 EDT, [facility]/pharmacy #[id number], Partial fill upon patient request if [...]
--- OUTSIDE RECORDS SUMMARY | 2022-04-16 23:21 | XMS_ITS | Continuity of Care Document ---
:1990 Author Organization [facility] Address [address] [place] [address]- Care Team Providers Name Role Phone Not on Staff, PCP Primary Care Physician Unavailable [place] [facility] [place]/05/20 - 10/05/[address] [address] Discharge Disposition: A-D/C Home Attending Physician: Not [...] 08/25/20 13:28:00 EDT, Route to Pharmacy Electronically, [facility]/pharmacy #[id number], Partial fill upon pa... Start Date: 08/25/20 Status: OrderedBactrim DS 800 mg-160 mg oral tablet 1 tablet, By Mouth, 2 times a day, 0 Refills, Maintenance, 02/13/18 17:08:45 EDT, Tablet Start Date: 02/13/18 Stop Date: 02/16/18 Status: OrderedPercocet-10/325 1 tablet, By Mouth, Every 6 hours, 0 Refills, Maintenance Start Date: 01/18/13 Status: Ordered
--- OUTSIDE RECORDS SUMMARY | 2022-04-16 23:21 | XMS_ITS | Continuity of Care Document ---
:1990 Author Organization [facility] Address [address] [place] [address]- Care Team Providers Name Role Phone Not on Staff, PCP Primary Care Physician Unavailable [place] [facility] [place] Date(s): 08/25/20 - 09/01/20 [facility] [address] [place] [id number] Attending Physician: Kera Zelaya MD Allergies, Adverse Reactions, Alerts No Known [...] 08/25/20 13:28:00 EDT, Route to Pharmacy Electronically, [facility]/pharmacy #[id number], Partial fill upon pa... Start Date: 08/25/20 Status: OrderedBactrim DS 800 mg-160 mg oral tablet 1 tablet, By Mouth, 2 times a day, 0 Refills, Maintenance, 02/13/18 17:08:45 EDT, Tablet Start Date: 02/13/18 Stop Date: 02/16/18 Status: OrderedPercocet-10/325 1 tablet, By Mouth, Every 6 hours, 0 Refills, Maintenance Start Date: 01/18/13 Status: Ordered
--- OUTSIDE RECORDS SUMMARY | 2022-04-16 23:21 | XMS_ITS | Continuity of Care Document ---
:1990 Author Organization [facility] Address [address] [place] [address]- Care Team Providers Name Role Phone Not on Staff, PCP Primary Care Physician Unavailable Encounter [facility] Date(s): 07/10/21 - 10/01/[address] [address]- Attending Physician: Not on Staff, Attending MD [...] capsule, 0 Refills, Maintenance, 08/10/21 7:37:00 EDT, [facility]/pharmacy #[id number], Partial fill upon patient request [...]
--- OUTSIDE RECORDS SUMMARY | 2022-04-16 23:21 | XMS_ITS | Continuity of Care Document ---
:1990 Author Organization [facility] Address [address] [place] [address]- Care Team Providers Name Role Phone Not on Staff, PCP Primary Care Physician Unavailable Encounter [facility] Date(s): 07/10/21 - 09/17/[address] [address]- Attending Physician: Not on Staff, Attending MD [...] capsule, 0 Refills, Maintenance, 08/10/21 7:37:00 EDT, [facility]/pharmacy #[id number], Partial fill upon patient request [...]
--- OUTSIDE RECORDS SUMMARY | 2022-04-16 23:21 | XMS_ITS | Continuity of Care Document ---
:1990 Author Organization [facility] Address [address] [place] [address]- Care Team Providers Name Role Phone Not on Staff, PCP Primary Care Physician Unavailable [place] [facility] [place]06[place] 07/07/21 [facility] [address] [place], [place] [address] Discharge Disposition: A-D/C Home Attending Physician: Valorie Ramsay MD Admitting Physician: Valorie Ramsay MD Referring Physician: Valorie Ramsay MD Allergies, Adverse Reactions, Alerts No Known [...] fill upon pa... Start Date: 08/25/20 Status: Orderedclotrimazole 1% vaginal cream with applicator 1 application, Vaginally, Daily at bedtime, # 45 Gm, 0 Refills, Maintenance, 07/07/21 0:39:00 EST, Cream, [facility]/pharmacy #[id number], Partial fill upon patient request if the prescription is for a schedule II opioid drug., 1 application Vaginally Daily at bed... Start Date: 07/07/21 Stop Date: 07/14/21 Status: OrderedLabetalol See Instructions, 0 Refills, Maintenance, [...] without diagnosis of Active hypertension(Confirmed)2 1Positive for [id number] BP at [facility] at current office 133/97, pt noted to be Rx labetalol 100mg, one tab BOD - no BP issuesnoted in transfer chart Procedures Procedure Date Related Diagnosis Body Site Status None Completed Vital Signs Most recent to oldest [Reference Range]: 1 2 Weight 89.4 kg (07/06/21 10:36 PM) Oxygen Saturation [94-100 %] 99 % (07/06/21 10:52 PM) Pulse Rate [55-90 bpm] 86 bpm 104 bpm (07/07/21 12:25 AM) *H* (07/06/21 10:52 PM) Blood Pressure [90-138/55-84 mm Hg] 117/61 mm Hg 122/ 77 mm Hg (07/07/21 12:25 AM) (07/06/21 10:52 PM) Respiratory Rate [16-30 br/min] 18 br/min (07/06/21 10:52 PM) Temperature [96.8-100.4 DegF] 98.6 DegF (07/06/21 10:52 PM) Temperature Route Oral (07/06/21 10:52 PM) Dry Weight 89.4 kg (07/06/21 10:36 PM) Weight Obtained Via Standing scale (07/06/21 10:36 PM) Social History Social History Type Response Smoking Status Former smoker, quit more jaelyn n 30 days ago entered on: 06/29/21 Sex
--- OUTSIDE RECORDS SUMMARY | 2022-04-16 23:21 | XMS_ITS | Continuity of Care Document ---
:1990 Author Organization [facility] Address [address] [place] [address]- Care Team Providers Name Role Phone Not on Staff, PCP Primary Care Physician Unavailable Encounter [facility] [place] Date(s): 08/13/21 - 09/12/[address] [address]- Allergies, Adverse Reactions, Alerts No Known Medication [...] capsule, 0 Refills, Maintenance, 08/10/21 7:37:00 EDT, [facility]/pharmacy #[id number], Partial fill upon patient request if [...]
--- OUTSIDE RECORDS SUMMARY | 2022-04-16 23:21 | XMS_ITS | Continuity of Care Document ---
:1990 Author Organization [facility] Address [address] [place] [address]- Care Team Providers Name Role Phone Not on Staff, PCP Primary Care Physician Unavailable [place] [facility] [place]21 - 07/23/[address] [address] Discharge Disposition: A-D/C Home Attending Physician: Pavan Rios MD Admitting Physician: Pavan Rios MD Referring Physician: Pavan Rios MD Allergies, Adverse Reactions, Alerts No Known [...] oldest 1 2 3 [Reference Range]: Height 165 cm 165 cm 165 cm (07/23/21 4:00 AM) (07/23/21 12:14 AM) (07/22/21 8:50 PM) Weight 89.5 kg 88.3 kg (07/22/21 12:14 AM) (07/21/21 8:16 PM) Oxygen Saturation [94-100 98 % 98 % 99 % %] (07/23/21 4:00 AM) (07/23/21 12:14 AM) (07/22/21 8:50 PM) Pulse Rate [55-90 bpm] 96 bpm 91 bpm 96 bpm *H* *H* *H* (07/23/21 4:00 AM) (07/23/21 12:14 AM) (07/22/21 8:50 PM) Body Mass Index 32.87 32.43 [18.5-24.99] *>HHI* *>HHI* (07/22/21 12:14 AM) (07/21/21 8:16 PM) Blood Pressure 114/55 mm Hg 99/54 mm Hg 133/66 mm Hg [90-138/55-84 mm Hg] (07/23/21 4:00 AM) (07/23/21 12:14 AM) (07/22/21 8:50 PM) Respiratory Rate [16-30 20 br/min 20 br/min 20 br/mi n br/min] (07/23/21 4:00 AM) (07/23/21 12:14 AM) (07/22/21 8:50 PM) Temperature [96.8-100.4 98.6 DegF 98.5 DegF 98.7 Deg F DegF] (07/23/21 4:00 AM) (07/23/21 12:14 AM) (07/22/21 8:50 PM) Mode of Delivery (Oxygen) Room air Room air Room a ir (07/23/21 4:00 AM) (07/23/21 12:14 AM) (07/22/21 8:50 PM) Blood pressure sites Arm, left Arm, left Arm, left (07/23/21 4:00 AM) (07/23/21 12:14 AM) (07/22/21 12:00 PM) Temperature Route Oral Oral Oral (07/23/21 4:00 AM) (07/23/21 12:14 AM) (07/22/21 8:50 PM) Dry Weight 89.5 kg 88.3 kg (07/22/21 12:14 AM) (07/21/21 8:16 PM) Weight Obtained Via Patient/family stated Standing scale (07/22/21 12:14 AM) (07/21/21 8:16 PM) Dry Weight Obtained Via Infant scale (07/22/21 12:14 AM) Social History Social History Type Response Smoking Status Former smoker, quit more jaelyn n 30 days ago entered on: 06/29/21 Sex
--- OUTSIDE RECORDS SUMMARY | 2022-04-16 23:21 | XMS_ITS | Continuity of Care Document ---
:1990 Author Organization [facility] Address [address] [place] [address]- Care Team Providers Name Role Phone Not on Staff, PCP Primary Care Physician Unavailable [place] [facility] [place] - 10/29/[address] [address]- Attending Physician: Not on Staff, Attending MD [...] capsule, 0 Refills, Maintenance, 08/10/21 7:37:00 EDT, [facility]/pharmacy #[id number], Partial fill upon patient request if [...]
--- OUTSIDE RECORDS SUMMARY | 2022-04-16 23:21 | XMS_ITS | Continuity of Care Document ---
:1990 Author Organization [facility] Address [address] [place] [address]- Care Team Providers Name Role Phone Not on Staff, PCP Primary Care Physician Unavailable Encounter [facility] [place] Date(s): 06/24/21 - 07/24/[address] [address]- Allergies, Adverse Reactions, Alerts No Known Medication [...] Most recent to oldest [Reference Range]: 1 Height 165 cm (06/29/21 1:15 PM) Dry Weight 86.81 kg (06/29/21 1:15 PM) Social History Social History Type Response Smoking Status Former smoker, quit more jaelyn n 30 days ago entered on: 06/29/21 Sex
--- OUTSIDE RECORDS SUMMARY | 2022-04-16 23:21 | XMS_ITS | Continuity of Care Document ---
:1990 Author Organization [facility] Address [address] [place] [address]- Care Team Providers Name Role Phone Not on Staff, PCP Primary Care Physician Unavailable [place] [facility] [place] 08[place]20 [facility] [address] [place] [id number] Allergies, Adverse Reactions, Alerts No Known [...] 07/21/20 13:45:00 EST, Route to Pharmacy Electronically, [facility]/pharmacy #[id number], Partial fill upon pa... Start Date: 07/21/20 Status: OrderedBactrim DS 800 mg-160 mg oral tablet 1 tablet, By Mouth, 2 times a day, 0 Refills, Maintenance, 02/13/18 17:08:45 EDT, Tablet Start Date: 02/13/18 Stop Date: 02/16/18 Status: OrderedPercocet-10/325 1 tablet, By Mouth, Every 6 hours, 0 Refills, Maintenance Start Date: 01/18/13 Status: Ordered
--- NOTE | 2022-04-17 01:33 | ED.GENADULT ---
HPI - General Adult General Chief complaint: General Medical Stated complaint: seema painon hands chills,dry cough Time Seen by Provider: 04/16/22 23:18 Source: patient and family Mode of arrival: ambulatory Limitations: no limitations History of Present Illness HPI narrative: 31-year-old female with a past medical history of carpal tunnel syndrome presents to the emergency department tonight complaining of left-sided carpal tunnel syndrome. Additionally, the patient states she has had a cough for the last 24 hours. No significant sputum production, but feels as if she has had a fever. The patient complains of general malaise and weakness. This all has been going on for the last 24 hours, and is moderate in severity. Onset (ago): day(s) (1) Location: left and upper extremity Severity: moderate Quality: aching Pain Consistency: intermittent Treatments prior to arrival: none Related Data Previous Rx's Medication Instructions Recorded cefuroxime axetil 250 mg tablet 250 mg PO BID 7 days #14 tabs 04/19/21 cephalexin 500 mg capsule 500 mg PO Q6H 7 days #28 caps 08/09/21 Brace,wrist #1 ea 04/17/22 Allergies Allergy/AdvReac Type Severity Reaction Status Date / Time No Known Allergies Allergy Verified 08/09/21 22:44 Review of Systems Constitutional: Constitutional: Denies chills, Reports fever(s) and Reports weakness Eyes: Eyes: Denies blurry vision and Denies diplopia Musculoskeletal: Musculoskeletal: Denies back pain, Denies numbness and Denies tingling Neurologic: Denies numbness, Denies tingling and Reports weakness PMFSH Past Medical History Attestation statement: The following information was validated with the patient. Source: nursing notes reviewed Medical History No known health problems Social History Social History Alcohol intake: never Patient Tobacco Use Status: Former Tobacco user Advance Directives: Yes Advance Directives Information Provided: No Advance Directives on File: No Physical Exam ED Vital Signs: Vital Signs - 24 hr 04/16/22 21:51 Temperature 98.9 F Pulse Rate 127 H Respiratory Rate 16 Blood Pressure 137/96 H Pulse Oximetry 99 Oxygen Delivery Method Room Air BMI result Body Mass Index 31.6 Const General: cooperative and in distress mild Orientation/consciousness: patient oriented x3 HENMT Head: Yes normal to inspection, Yes normocephalic and Yes atraumatic Ears: hearing grossly normal bilaterally General nose exam: Normal external nose present Neuro General: patient oriented x3 Medical Decision Making MDM Narrative Medical decision making narrative: 31-year-old female presenting to the emergency department with left carpal tunnel symptoms as well as a cough. The patient is concerned about COVID. Her COVID test was negative. She did have a chest x-ray which was also unremarkable. She will be discharged home with instructions to use a wrist splint at night especially for her carpal tunnel, and follow-up with her primary care doctor on Tuesday. Lab Data Labs: Lab Results 04/16/22 04/16/22 Range/Units 21:55 21:55 COVID-19 (AGUEDA) Negative (Negative) COVID-19 Clin Com See Note Influenza Type A (TIMOTEO) Negative (Negative) Influenza Type B (TIMOTEO) Negative (Negative) Influenza A & B Note See Note Imaging Data Chest x-ray: Radiologist's impression: No acute pulmonary disease Discharge Plan Discharge Clinical Impression: Acute carpal tunnel syndrome of left wrist, Acute viral syndrome Patient Disposition: Home, Self-Care Instructions: Viral Syndrome (ED), Carpal Tunnel Surgery (DC) Additional Instructions: Continue to use ibuprofen, 600 mg 4 times a day for your wrist. You may also ice it, and wear the splint as needed. If this does not improve within a week to 10 days, you should follow-up with her primary care physician for possible referral to a hand specialist. Prescriptions: New (DME) Brace,wrist Misc See Rx Instructions .Route Qty: 1 0RF Rx Instructions: As directed No Action cephalexin 500 mg capsule 500 mg PO Q6H 7 Days Qty: 28 0RF cefuroxime axetil 250 mg tablet 250 mg PO BID 7 Days Qty: 14 0RF
--- NOTE | 2022-04-17 02:51 | PC.NURSE ---
Left wrist brace applied. Discharge instructions reviewed with pt. Pt verbalizes understanding.
== END 2022-04-17 02:51 | disposition home or self-care (01) ==
PROVIDERS: Emergency Provider Emergency Medicine
DX: G56.02 Carpal tunnel syndrome, left upper limb (principal); B34.9 Viral infection, unspecified; R53.1 Weakness; Z20.822 Contact with and (suspected) exposure to COVID-19
CPT/HCPCS: 71046; 87502; 87635; 99282; 99283

== ENCOUNTER 2024-06-13 21:50 | Emergency (ER) | payer OTHER, SELFPAY ==
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
--- NOTE | ~2024-06-13 | CT_ITS ---
CLINICAL HISTORY: headache CT head without contrast Comparison: CT/NM - CT HEAD/BRAIN WO CON - 06/12/20 22:12 EST Findings: No intra-axial mass, midline shift, hydrocephalus, or acute hemorrhage. No significant atrophy-like change or white matter disease. There is no sinus or mastoid fluid. The orbits are unremarkable. No skull fracture. IMPRESSION: 1. No acute intracranial findings. This document has been electronically signed by: Rodolfo Reyes MD, PHD on 06/14/2024 02:24:50
[2024-06-13 21:55] VITALS: BP 178/100; PULSE 108; RESP 18; TEMP 36.7; O2SAT 97; BMI 33.3
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
[2024-06-14] MEDS: Acetaminophen 325 MG TABLET 975 MG PO (01:45)
[2024-06-14 03:15] VITALS: BP 129/87; PULSE 78; RESP 19; TEMP 36.6; O2SAT 96
[2024-06-14 03:44] VITALS: BP 129/87; PULSE 78; RESP 19; TEMP 36.6; O2SAT 96
== END 2024-06-14 03:46 | disposition home or self-care (01) ==
PROVIDERS: Emergency Provider Emergency Medicine Emergency Medical Services
DX: S13.4XXA Sprain of ligaments of cervical spine, initial encounter (principal); V43.02XA Car driver injured in collision with other type car in nontraffic accident, initial encounter; Y93.9 Activity, unspecified; Y92.481 Parking lot as the place of occurrence of the external cause; Y99.9 Unspecified external cause status; R51.9 Headache, unspecified; M54.2 Cervicalgia
CPT/HCPCS: 70450; 72125; 99283; 99284

== ENCOUNTER → 2024-06-14 00:52 | Outpatient (BNV) | payer SELFPAY | PROVIDERS: Emergency Provider Emergency Medicine Emergency Medical Services; Visit Provider General Practice | DX: M54.2 Cervicalgia (principal); V89.2XXA Person injured in unspecified motor-vehicle accident, traffic, initial encounter; R51.9 Headache, unspecified | CPT/HCPCS: 70450; 72125 ==